=== PATIENT | male | born 1995 | race African-American/Black ===

== ENCOUNTER 2023-08-16 18:16 | Emergency (ER) | payer OTHER ==
[2023-08-16 19:34] LABS: Absolute Lymphocytes (CBC) 0.5 K/uL (0.7-4.9); Absolute Monocytes 0.5 K/uL (0.1-1.3); Absolute Neutrophil 9.4 K/uL (1.8-8.0); Basophils % 0.5 % (0-1.3); Eosinophils % 0.2 % (0-4.4); Hematocrit 44.5 % (39.6-49.0); Hemoglobin 14.9 g/dL (13.6-17.9); Lymphocytes % 4.6 % (15.3-44.8); MCH 27.7 pg (27.0-35.0); MCHC 33.4 g/dL (32.0-36.0); MCV 82.9 fL (80-100); MPV 7.6 fL (7.6-11.3); Monocytes % 4.7 % (3.3-12.3); Nucleated Red Blood Cells % 0.2 % (0-0); Platelets 250 thou/uL (152-406); RBC Red Blood Cell Count 5.36 M/uL (4.33-5.43); Red Cell Distribution Width 13.8 % (12.1-15.2)
[2023-08-16] MEDS ORDERED: ONDANSETRON 4 MG/2 ML VIAL ONE ×2 (19:36→20:31)
[2023-08-16] MEDS ORDERED: MORPHINE 4 MG/ML SYR ONE ×2 (19:37→20:56)
[2023-08-16] MEDS ORDERED: NA CHLORIDE 0.9% 1,000 ML ONE (19:37)
[2023-08-16] MEDS ORDERED: FAMOTIDINE 20 MG/2 ML VIAL IV ONE (19:37)
[2023-08-16 19:56] LABS: Albumin 4.4 g/dL (3.4-5.0); Anion Gap 13.9 mEq/L (5.0-15.0); Globulin 4.3 g/dL (2.3-3.5); Potassium 3.9 mEq/L (3.5-5.1); Protein, Total 8.7 g/dL (6.4-8.2)
--- NOTE | 2023-08-16 20:14 | RAD REPORT ---
EXAM DESCRIPTION: US - Abdomen Exam Limited - 08/16/2023 7:53 pm CLINICAL HISTORY: ABD PAIN COMPARISON: No comparisons FINDINGS: The gallbladder demonstrates no gallstones. No pericholecystic fluid or gallbladder wall t hickening. The common bile duct is normal measuring 2 mm. The liver demonstrates no findings of intrahepatic biliary dilatation. IMPRESSION: Unremarkable examination.
[2023-08-16 21:05] LABS: Blood Morphology Comment NOT SEEN (NOT SEEN); Platelet Estimate ADEQ; White Blood Cell Scan OK (OK)
--- NOTE | 2023-08-16 21:20 | RAD REPORT ---
EXAM DESCRIPTION: CTAbdomen Pelvis Wo Contrast - 08/16/2023 9:07 pm CLINICAL HISTORY: ABD PAIN COMPARISON: No comparisons TECHNIQUE: CT of the abdomen and pelvis was performed without contrast. All CT scans are performed using dose optimization technique as appropriate and may include automated exposure control or mA/KV adjustment according to patient size. FINDINGS: Lower chest: No acute abnormality. Mild circumferential thickened distal esophagus could r eflect mild esophagitis . Liver: No acute abnormality or suspicious lesions. Biliary: No biliary ductal dilatation. Stomach: No significant focal abnormality. Duodenum: No significant focal abnormality. Pancreas: No significant abnormality. Spleen: No significant abnormality. Adrenal: No suspicious lesions. Kidney/ureter: No hydronephrosis. No renal calculi. Retroperitoneum: No retroperitoneal adenopathy. Vascular: No aneurysm. Bowel: Normal appendix. Peritoneum: Small fat containing supraumbilical hernia but with some stranding at the neck of the her fern and in the subjacent peritoneum. Tiny fat containing umbilical hernia. Bladder: Grossly unremarkable. Reproductive: No adnexal masses. Bones: No acute fracture. Sternotomy. Other: n/a IMPRESSION: No definite acute intra-abdominal or pelvic finding. Small fat containing supraumbilical hernia with some stranding within the neck and in the subjacent intraperitoneal fat that could refle ct incarceration or strangulation. Suggest clinical correlation. Normal appendix.
--- NOTE | 2023-08-16 22:21 | ER ---
Nurse's Notes [facility] Name: Naseem Sparrow Age: 28 yrs Sex: Male : 1995 Arrival Date: 08/16/2023 Time: 18:16 Bed 12 Private MD: Diagnosis: Upper abdominal pain, unspecified Presentation: 08/15 18:34 Chief complaint: Diffuse abdominal pain and N/V x 2 days. Coronavirus screen: At this hb time, the client does not indicate any symptoms associated with coronavirus-19. Ebola Screen: No symptoms or risks identified at this time. Initial Sepsis Screen: Does the patient meet any 2 criteria? No. Patient's initial sepsis screen is negative. Does the patient have a suspected source of infection? No. Patient's initial sepsis screen is negative. Risk Assessment: Do you want to hurt yourself or someone else? Patient reports no desire to harm self or others. Onset of symptoms was August 15, 2023. 18:34 Method Of Arrival: Ambulatory hb 18:34 Acuity: VITOR 3 hb Historical: - Allergies: 18:35 IV Contrast; hb 18:35 Lisinopril; hb - PSHx: 18:35 Hypertension; hb - Immunization history:: Adult Immunizations not up to date. - Infectious Disease History:: Denies. - Social history:: Smoking status: Patient denies any tobacco usage or history of. Screenin:59 [facility] ED Fall Risk Assessment (Adult) History of falling in the last 3 months, as6 including since admission No falls in past 3 months (0 pts) Confusion or Disorientation No (0 pts) Intoxicated or Sedated No (0 pts) Impaired Gait No (0 pts) Mobility Assist Device Used No (0 pt) Altered Elimination No (0 pt) Score/Fall Risk Level 0 - 2 = Low Risk Oriented to surroundings, Maintained a safe environment, Educated pt \T\ family on fall prevention, incl call for assistance when getting out of bed, Assessed \T\ reinforced patient's understanding of fall precautions. Abuse screen: Denies threats or abuse. Denies injuries from another. Nutritional screening: No deficits noted. Tuberculosis screening: No symptoms or risk factors identified. Assessment: 19:20 General: Appears uncomfortable, Behavior is cooperative, restless. Pain: Complains of as6 pain in abdomen Noted to be grimacing, guarding, moaning, restless. Neuro: Level of Consciousness is awake, alert, obeys commands, Oriented to person, place, time, situation. Cardiovascular: Capillary refill < 3 seconds Patient's skin is warm and dry. Respiratory: Respiratory effort is even, unlabored, Respiratory pattern is regular, symmetrical. GI: Pt is actively vomiting Reports lower abdominal pain, nausea, vomiting. : No deficits noted. No signs and/or symptoms were reported regarding the genitourinary system. EENT: No deficits noted. No signs and/or symptoms were reported regarding the EENT system. Derm: Skin is intact, is healthy with good turgor. Musculoskeletal: Circulation, motion, and sensation intact. 21:58 Reassessment: Patient appears in no apparent distress at this time. Patient and/or as6 family updated on plan of care and expected duration. Pain level reassessed. Patient is alert, oriented x 3, equal unlabored respirations, skin warm/dry/pink. Patient states feeling better. Patient states symptoms have improved. General: Appears in no apparent distress. comfortable. Vital Signs: 18:34 BP 176 / 105; Pulse 62; Resp 16; Temp 97.9(O); Pulse Ox 100% on R/A; Weight 83.91 kg; hb Height 5 ft. 6 in. ; Pain 4/10; 20:45 BP 119 / 69; Pulse 85; Resp 16; Pulse Ox 97% ; as6 22:02 BP 124 / 71; Pulse 77; Resp 16; Pulse Ox 100% ; as6 18:34 Body Mass Index 29.86 (83.91 kg, 167.64 cm) hb 18:34 Pain Scale: Adult hb ED Course: 18:20 Patient arrived in ED. mg5 18:35 Triage completed. hb 18:36 Arm band placed on. hb 18:52 Iris Robles FNP-C is [facility]. kb 18:52 Joseph Paris MD is Attending Physician. kb 19:11 Jeremías Brown, ERICA is Primary Nurse. as6 19:28 Lipase Sent. as6 19:28 CMP Sent. as6 19:28 CBC with Diff Sent. as6 19:34 Inserted saline lock: 20 gauge in left forearm, using aseptic technique. Blood as6 collected. 19:55 US Abdomen Limited In Process Unspecified. EDMS 21:09 CT Abd/Pelvis - Without Contrast In Process Unspecified. EDMS 22:01 Placed in gown. Bed in low position. Call light in reach. Side rails up X2. Client as6 placed on continuous cardiac and pulse oximetry monitoring. NIBP monitoring applied. Warm blanket given. 22:29 No provider procedures requiring assistance completed. IV discontinued, intact, as6 bleeding controlled, No redness/swelling at site. Pressure dressing applied. 22:30 Provided Education on: follow up with GI. as6 Administered Medications: 19:43 Drug: NS 0.9% IV 1000 ml IV at 1000 ml once Route: IV; Rate: 1000 ml; Site: left as6 forearm; 22:23 Follow up: Response: No adverse reaction; IV Status: Completed infusion; IV Intake: as6 1000ml 19:43 Drug: Ondansetron IVP 4 mg IVP once; over 2 minutes Route: IVP; Site: left forearm; as6 22:23 Follow up: Response: No adverse reaction as6 19:43 Drug: Famotidine IVP 20 mg IVP once; dilute with 10 mL 0.9% NaCl; give over 2 minutes as6 Route: IVP; Site: left forearm; 22:23 Follow up: Response: No adverse reaction as6 19:43 Drug: morphine IVP or IV 4 mg IVP once over 4 mins Route: IVP; Infused Over: 4 mins; as6 Site: left forearm; 22:23 Follow up: Response: No adverse reaction as6 20:33 Drug: Ondansetron IVP 4 mg IVP once; over 2 minutes Route: IVP; Site: left forearm; as6 22:23 Follow up: Response: No adverse reaction as6 21:00 Drug: morphine IVP or IV 4 mg IVP once over 4 mins Route: IVP; Infused Over: 4 mins; cm10 Site: left forearm; 22:22 Follow up: Response: No adverse reaction; Pain is decreased as6 Medication: 22:01 VIS not applicable for this client. as6 Intake: 22:23 IV: 1000ml; Total: 1000ml. as6 Outcome: 22:21 Discharge ordered by MD. freitas 22:29 Discharged to home ambulatory, with significant other, as6 22:29 Condition: stable 22:29 Discharge instructions given to patient, Instructed on discharge instructions, follow up and referral plans. medication usage, Demonstrated understanding of instructions, follow-up care, medications, Prescriptions given X 2, 22:30 Patient left the ED. as6 Signatures: Dispatcher [employer] EDIris Pereira, TANA NICE-Sury Ramirez, RN ERICA Jeremías Brown RN RN as6 Shazia Lei RN RN cm10 Kenzie Holt 5 Corrections: (The following items were deleted from the chart) 18:36 18:35 Allergies: No Known Allergies; [facility]
--- NOTE | 2023-08-16 22:21 | EDPHYS ---
Physician Documentation [facility] Name: Naseem Sparrow Age: 28 yrs Sex: Male : 1995 Arrival Date: 08/16/2023 Time: 18:16 Bed 12 Private MD: ED Physician Joseph Paris HPI: 08/15 23:40 This 28 yrs old Black Male presents to ER via Ambulatory with complaints of Abdominal kb Pain, Vomiting. 23:40 Pt is a 28 year old male who presents for upper abd pain, nausea and vomiting that has kb been intermittent for 3 days. Denies diarrhea. States he has had this in the past and it normally resolves after some time. Has not been seen by GI but was told that he should. . Historical: - Allergies: 18:35 IV Contrast; hb 18:35 Lisinopril; hb - PSHx: 18:35 Hypertension; hb - Immunization history:: Adult Immunizations not up to date. - Infectious Disease History:: Denies. - Social history:: Smoking status: Patient denies any tobacco usage or history of. ROS: 23:39 Constitutional: As per HPI kb Exam: 23:39 Constitutional: This is a well developed, well nourished patient who is awake, alert, kb and in no acute distress. Head/Face: Normocephalic, atraumatic. ENT: Moist Mucous membranes Cardiovascular: Regular rate Respiratory: Respirations even and unlabored. No increased work of breathing. Talking in full sentences Skin: Warm, dry with normal turgor. Normal color. MS/ Extremity: Pulses equal, no cyanosis. Neurovascular intact. Full, normal range of motion. Neuro: Awake and alert, GCS 15, oriented to person, place, time, and situation. Moves all extremities. Normal gait. 23:39 Abdomen/GI: Inspection: abdomen appears normal, Bowel sounds: normal, Palpation: soft, in all quadrants, moderate abdominal tenderness, in the right upper quadrant and left upper quadrant, Vital Signs: 18:34 BP 176 / 105; Pulse 62; Resp 16; Temp 97.9(O); Pulse Ox 100% on R/A; Weight 83.91 kg; hb Height 5 ft. 6 in. ; Pain 4/10; 20:45 BP 119 / 69; Pulse 85; Resp 16; Pulse Ox 97% ; as6 22:02 BP 124 / 71; Pulse 77; Resp 16; Pulse Ox 100% ; as6 18:34 Body Mass Index 29.86 (83.91 kg, 167.64 cm) hb 18:34 Pain Scale: Adult hb MDM: 18:53 Patient medically screened. kb 23:39 Differential diagnosis: gastritis, gastroesophageal reflux disease, non-specific abd kb pain, pancreatitis. Data reviewed: vital signs, nurses notes. Counseling: I had a detailed discussion with the patient and/or guardian regarding the historical points, exam findings, and any diagnostic results supporting the discharge/admit diagnosis, lab results, radiology results, the need for outpatient follow up, a second baker, to return to the emergency department if symptoms worsen or persist or if there are any questions or concerns that arise at home. Response to treatment: the patient's symptoms have resolved after treatment. 08/15 18:53 Order name: CBC with Diff; Complete Time: 21:07 kb 08/15 18:53 Order name: CMP; Complete Time: 20:00 kb 08/15 18:53 Order name: Lipase; Complete Time: 20:00 kb 08/15 21:05 Order name: CBC Smear Scan; Complete Time: 21:07 EDMS 08/15 19:27 Order name: US Abdomen Limited; Complete Time: 20:15 kb 08/15 20:32 Order name: CT Abd/Pelvis - Without Contrast; Complete Time: 21:26 kb 08/15 18:53 Order name: IV Saline Lock; Complete Time: 19:34 kb 08/15 18:53 Order name: Labs collected and sent; Complete Time: 19:28 kb Administered Medications: 19:43 Drug: NS 0.9% IV 1000 ml IV at 1000 ml once Route: IV; Rate: 1000 ml; Site: left as6 forearm; 22:23 Follow up: Response: No adverse reaction; IV Status: Completed infusion; IV Intake: as6 1000ml 19:43 Drug: Ondansetron IVP 4 mg IVP once; over 2 minutes Route: IVP; Site: left forearm; as6 22:23 Follow up: Response: No adverse reaction as6 19:43 Drug: Famotidine IVP 20 mg IVP once; dilute with 10 mL 0.9% NaCl; give over 2 minutes as6 Route: IVP; Site: left forearm; 22:23 Follow up: Response: No adverse reaction as6 19:43 Drug: morphine IVP or IV 4 mg IVP once over 4 mins Route: IVP; Infused Over: 4 mins; as6 Site: left forearm; 22:23 Follow up: Response: No adverse reaction as6 20:33 Drug: Ondansetron IVP 4 mg IVP once; over 2 minutes Route: IVP; Site: left forearm; as6 22:23 Follow up: Response: No adverse reaction as6 21:00 Drug: morphine IVP or IV 4 mg IVP once over 4 mins Route: IVP; Infused Over: 4 mins; cm10 Site: left forearm; 22:22 Follow up: Response: No adverse reaction; Pain is decreased as6 Disposition Summary: 08/16/23 22:21 Discharge Ordered Notes: Location: Home kb Condition: Stable kb Diagnosis - Upper abdominal pain, unspecified kb Followup: kb - With: Emergency Department - When: As needed - Reason: Worsening of condition Followup: kb - With: Private Physician - When: 2 - 3 days - Reason: Recheck today's complaints, Continuance of care, Re-evaluation by your physician Discharge Instructions: - Discharge Summary Sheet kb - Abdominal Pain, Adult, [id number] kb Forms: - Medication Reconciliation Form kb - Antibiotic Education kb - Prescription Opioid Use kb - Patient Portal Instructions kb - Leadership Thank You Letter kb Prescriptions: - Zofran 4 mg Oral tablet - take 1 tablet ORAL route every 6 hours As needed; 12 tablet; Refills: 0, kb Product Selection Permitted - dicyclomine 20 mg Oral tablet - take 1 tablet ORAL route 4 times per day As needed; 12 tablet; Refills: 0, kb Product Selection Permitted Signatures: Dispatcher [employer] Iris Gardner, ARLET-Mack MORALESP-Sury Ramirez RN RN hb Jeremías Brown RN RN as6 Shazia Lei RN RN cm10 Corrections: (The following items were deleted from the chart) 18:36 18:35 Allergies: No Known Allergies; hb
[2023-08-16 23:10] VITALS: BP 124/71; TEMP 97.9; O2SAT 100
== END 2023-08-16 22:30 | disposition home or self-care (01) ==
LOC: ER 18:16
DX: R10.12 Left upper quadrant pain (principal); R10.11 Right upper quadrant pain; Z88.8 Allergy status to other drugs, medicaments and biological substances; Z91.041 Radiographic dye allergy status
CPT/HCPCS: 96361; 85025; 36415; 83690; 80053; 74176; 76705; 96375; 96374; 99284; J2405 ×2; J7030

== ENCOUNTER 2023-11-14 20:57 | Emergency (ER) | payer OTHER ==
[2023-11-14] MEDS ORDERED: ONDANSETRON 4 MG/2 ML VIAL ONE ×2 (21:20→21:53)
[2023-11-14] MEDS ORDERED: CALCIUM GLUCONATE 1 GM IVPB 2 GM/100 ML BAG IV ONE (21:21)
[2023-11-14] MEDS ORDERED: NA CHLORIDE 0.9% 1,000 ML ONE (21:21)
[2023-11-14] MEDS ORDERED: FAMOTIDINE 20 MG/2 ML VIAL IV ONE (21:21)
[2023-11-14] MEDS ORDERED: MORPHINE 4 MG/ML SYR ONE (21:21)
[2023-11-14] MEDS ORDERED: HALOPERIDOL LACT 5 MG/ML INJ ONE (21:21)
[2023-11-14 21:55] LABS: Absolute Lymphocytes (CBC) 1.1 K/uL (0.7-4.9); Absolute Monocytes 0.7 K/uL (0.1-1.3); Absolute Neutrophil 11.9 K/uL (1.8-8.0); Basophils % 0.3 % (0-1.3); Eosinophils % 0.1 % (0-4.4); Hematocrit 46.5 % (39.6-49.0); Hemoglobin 15.6 g/dL (13.6-17.9); MCH 28.1 pg (27.0-35.0); MCHC 33.6 g/dL (32.0-36.0); MCV 83.6 fL (80-100); MPV 7.7 fL (7.6-11.3); Monocytes % 4.9 % (3.3-12.3); Neutrophils % 86.7 % (41.7-73.7); Platelets 232 thou/uL (152-406); RBC Red Blood Cell Count 5.56 M/uL (4.33-5.43); Red Cell Distribution Width 13.9 % (12.1-15.2)
[2023-11-14] MEDS ORDERED: DIAZEPAM 10 MG/2 ML INJ SYRINGE ONE (22:10)
[2023-11-14 22:21] LABS: Barbiturates NEGATIVE (NEGATIVE); Benzodiazepines NEGATIVE (NEGATIVE); Cocaine NEGATIVE (NEGATIVE); METHAMPHETAM NEGATIVE (NEGATIVE); Methadone NEGATIVE (NEGATIVE); Opiates NEGATIVE (NEGATIVE); Phencyclidine NEGATIVE (NEGATIVE); THC Cannibis POSITIVE (NEGATIVE)
[2023-11-14 22:25] LABS: Potassium 3.3 mEq/L (3.5-4.9)
[2023-11-14 22:27] LABS: Albumin 5.1 g/dL (3.4-5.0); Albumin/Globulin Ratio 1.2 (1.1-1.8); Anion Gap 15.3 mEq/L (5.0-15.0); Bilirubin Total 0.9 mg/dL (0.2-1.0); Globulin 4.2 g/dL (2.3-3.5); Protein, Total 9.3 g/dL (6.4-8.2); Troponin High Sensitivity 8.1 pg/mL (<58.9)
--- NOTE | 2023-11-15 00:26 | ER ---
Nurse's Notes [facility] Name: Naseem Sparrow Age: 28 yrs Sex: Male : 1995 Arrival Date: 11/14/2023 Time: 20:57 Bed 3 Private MD: Diagnosis: Vomiting, unspecified;Acute gastroenteritis, nausea vomiting, cannabis use disorder Presentation: 11/13 21:16 Chief complaint: Patient states: abdominal cramping x2 days with nausea, vomiting, tm6 diarrhea, sweating, dizziness. Coronavirus screen: Vaccine status: Patient reports receiving the 2nd dose of the covid vaccine. Ebola Screen: Patient negative for fever greater than or equal to 101.5 degrees Fahrenheit, and additional compatible Ebola Virus Disease symptoms Patient denies exposure to infectious person. Patient denies travel to an Ebola-affected area in the 21 days before illness onset. No symptoms or risks identified at this time. Initial Sepsis Screen: Does the patient meet any 2 criteria? No. Patient's initial sepsis screen is negative. Does the patient have a suspected source of infection? No. Patient's initial sepsis screen is negative. Risk Assessment: Do you want to hurt yourself or someone else? Patient reports no desire to harm self or others. Onset of symptoms was November 12, 2023. 21:16 Method Of Arrival: Ambulatory tm6 21:16 Acuity: VITOR 3 tm6 Triage Assessment: 21:17 General: Appears distressed, Behavior is anxious, restless. Pain: Complains of pain in tm6 abdomen Pain does not radiate. Pain currently is 10 out of 10 on a pain scale. Quality of pain is described as crampy, Pain began 2-3 days ago. EENT: No signs and/or symptoms were reported regarding the EENT system. Neuro: Level of Consciousness is awake, alert, obeys commands, Oriented to person, place, time, situation. Cardiovascular: Patient's skin is warm and dry. Respiratory: Airway is patent Respiratory effort is even, unlabored, Respiratory pattern is regular, symmetrical. GI: Reports lower abdominal pain, upper abdominal pain, cramping, diarrhea, nausea, vomiting. : No signs and/or symptoms were reported regarding the genitourinary system. Derm: No signs and/or symptoms reported regarding the dermatologic system. Musculoskeletal: No signs and/or symptoms reported regarding the musculoskeletal system. Historical: - Allergies: 21:17 IV contrast; tm6 21:17 Lisinopril; tm6 - PMHx: 21:17 Coronary atherosclerosis; tm6 - PSHx: 21:17 Hypertension; aortic valve replacement; Coronary artery bypass graft; tm6 - Immunization history:: Client reports receiving the 2nd dose of the Covid vaccine. - Infectious Disease History:: Denies. - Social history:: Smoking status: Patient denies any tobacco usage or history of. Patient uses alcohol, occasionally. - Family history:: not pertinent. Screenin:17 [facility] ED Fall Risk Assessment (Adult) History of falling in the last 3 months, jj7 including since admission No falls in past 3 months (0 pts) Confusion or Disorientation No (0 pts) Intoxicated or Sedated No (0 pts) Impaired Gait No (0 pts) Mobility Assist Device Used No (0 pt) Altered Elimination No (0 pt) Score/Fall Risk Level 0 - 2 = Low Risk Oriented to surroundings, Maintained a safe environment, Educated pt \T\ family on fall prevention, incl call for assistance when getting out of bed, Assessed \T\ reinforced patient's understanding of fall precautions. Abuse screen: Denies threats or abuse. Nutritional screening: No deficits noted. Tuberculosis screening: No symptoms or risk factors identified. Assessment: 21:17 General: Appears in no apparent distress. uncomfortable, Behavior is inappropriate for jj7 age, FLAILING AROUND IN BED. Pain: Complains of pain in abdomen, right hand, right leg and left leg. GI: Reports cramping, nausea, vomiting. Musculoskeletal: Reports CRAMPING IN LEGS AND ARMS. Vital Signs: 21:16 BP 159 / 135; Pulse 52; Resp 23; Temp 98.5(O); Pulse Ox 100% on R/A; Weight 90.72 kg; tm6 Height 5 ft. 10 in. ; Pain 10/10; 22:01 BP 144 / 75; Pulse 50; Resp 16; Pulse Ox 94% ; jj7 23:07 BP 137 / 123; Pulse 70; Resp 19; Pulse Ox 100% ; jj7 23:33 BP 123 / 75; Pulse 67; Resp 16; Pulse Ox 95% ; jj7 08 00:00 BP 95 / 59; Pulse 49; Resp 16; Pulse Ox 98% ; jj7 00:51 BP 112 / 72; Pulse 50; Resp 16; Temp 97.8; Pulse Ox 96% ; Pain 0/10; jj7 11/13 21:16 Body Mass Index 28.70 (90.72 kg, 177.8 cm) tm6 11/13 21:16 Pain Scale: Adult tm6 00:51 Pain Scale: Adult jj7 Summer Coma Score: 23:09 Eye Response: spontaneous(4). Motor Response: obeys commands(6). Verbal Response: sp4 oriented(5). Total: 15. ED Course: 11/13 21:01 Patient arrived in ED. gm2 21:09 Sumeet Campbell MD is Attending Physician. sp4 21:17 Triage completed. tm6 21:17 Arm band placed on right wrist. tm6 21:17 Patient has correct armband on for positive identification. Bed in low position. Call jj7 light in reach. Adult w/ patient. Provided Education on: USE OF CALL BUSTAMANTE. Warm blanket given. 21:17 Inserted saline lock: 20 gauge in left forearm, using aseptic technique. Blood jj7 collected. Flushed with 10 mL NS. 21:46 BNP Sent. jj7 21:46 CK Sent. jj7 21:46 Troponin High Sensitivity Sent. jj7 21:46 Urine Drug Screen Sent. jj7 21:48 CBC with Diff Sent. jj7 21:48 CMP Sent. jj7 21:48 Lipase Sent. jj7 22:49 Chest Abd Pelvis Wo Con In Process Unspecified. EDMS 11/14 00:06 Jarett Friend MD is Referral Physician. sp4 00:33 No provider procedures requiring assistance completed. IV discontinued, intact, jj7 bleeding controlled, No redness/swelling at site. Pressure dressing applied. Administered Medications: 11/13 21:46 Drug: Famotidine IVP 20 mg IVP once; dilute with 10 mL 0.9% NaCl; give over 2 minutes jj7 Route: IVP; Site: left forearm; 22:00 Follow up: Response: Marked relief of symptoms jj7 21:47 Drug: Haloperidol IVP 2.5 mg/50 mL 2.5 mg IVP once; Place patient on a distresser jj7 Route: IVP; Site: left forearm; 22:00 Follow up: Response: Marked relief of symptoms jj7 :47 Drug: NS 0.9% IV 1000 ml IV at 1 bolus Per protocol; 1000 mL bolus Route: IV; Rate: 1 jj7 bolus; Site: left forearm; 23:15 Follow up: IV Status: Completed infusion 7 21:47 Drug: Ondansetron IVP 8 mg IVP once; over 2 minutes Route: IVP; Site: left forearm; jj7 22:00 Follow up: Response: Marked relief of symptoms; Nausea is decreased 7 21:47 Drug: morphine IVP or IV 4 mg IVP once over 4 mins Route: IVP; Infused Over: 4 mins; jj7 Site: left forearm; 22:00 Follow up: Response: Marked relief of symptoms; Pain is decreased j7 21:48 Drug: Calcium Gluconate IVPB 2 grams IVPB once over 60 mins; (mix in NS 100 mL) Route: jj7 IVPB; Infused Over: 60 mins; Site: left forearm; 23:00 Follow up: IV Status: Completed infusion 23:20 Drug: Diazepam IVP 10 mg IVP once Route: IVP; Site: left forearm; jj7 23:33 Follow up: BP 123 / 75; Pulse 67 bpm; Resp 16 bpm; Pulse Ox 95% ; Response: Marked 7 relief of symptoms Medication: 21:17 VIS not applicable for this client. jj7 Outcome: 11/14 00:26 Discharge ordered by MD. aguero 00:51 Discharged to home ambulatory, with significant other, jj7 00:51 Condition: improved 00:51 Discharge instructions given to patient, Instructed on discharge instructions, follow up and referral plans. medication usage, Demonstrated understanding of instructions, follow-up care, medications, Prescriptions given X 2, 00:54 Patient left the ED. jj7 Signatures: Dispatcher [employer] EDMS Nenita Byrd RN RN jj7 Sumeet Campbell MD MD sp4 Dacia Ascencio 2 Bernice Mehta RN RN tm6
--- NOTE | 2023-11-15 00:26 | EDPHYS ---
Physician Documentation [facility] Name: Naseem Sparrow Age: 28 yrs Sex: Male : 1995 Arrival Date: 11/14/2023 Time: 20:57 Bed 3 Private MD: ED Physician Sumeet Campbell HPI: 11/13 21:09 This 28 yrs old Black Male presents to ER via Unassigned with complaints of sp4 Nausea/Vomiting, Arm Pain, Numbness Of Hand. 11/14 23:09 28-year-old male presents with complaint of nausea vomiting arm pain and bilateral hand sp4 numbness.. Historical: - Allergies: 11/13 21:17 IV contrast; tm6 21:17 Lisinopril; tm6 - PMHx: 21:17 Coronary atherosclerosis; tm6 - PSHx: 21:17 Hypertension; aortic valve replacement; Coronary artery bypass graft; tm6 - Immunization history:: Client reports receiving the 2nd dose of the Covid vaccine. - Infectious Disease History:: Denies. - Social history:: Smoking status: Patient denies any tobacco usage or history of. Patient uses alcohol, occasionally. - Family history:: not pertinent. ROS: 11/14 23:09 Constitutional: Negative for fever, chills, and weight loss, positive nausea vomiting, sp4 positive arm pain, positive numbness of hands. All other systems are negative, Exam: 23:09 Constitutional: This is a well developed, well nourished patient who is awake, alert, sp4 Acutely nauseated and anxious Head/Face: Normocephalic, atraumatic. Eyes: Pupils equal round and reactive to light, extra-ocular motions intact. Lids and lashes normal. Conjunctiva and sclera are not injected. Cornea within normal limits. Periorbital areas with no swelling, redness, or edema. ENT: Nares patent. No nasal discharge, no septal abnormalities noted. Tympanic membranes are normal and external auditory canals are clear. Oropharynx with no redness, swelling, or masses, exudates, or evidence of obstruction, uvula midline. Mucous membranes moist. Neck: Trachea midline, no thyromegaly or masses palpated, and no cervical lymphadenopathy. Supple, full range of motion without nuchal rigidity, or vertebral point tenderness. Chest/axilla: Normal chest wall appearance and motion. Nontender with no deformity. No lesions are appreciated. Cardiovascular: Regular rate and rhythm with a normal S1 and S2. No gallops, murmurs, or rubs. Normal PMI, no JVD. No pulse deficits. Respiratory: Lungs have equal breath sounds bilaterally, clear to auscultation and percussion. No rales, rhonchi or wheezes noted. No increased work of breathing, no retractions or nasal flaring. Abdomen/GI: Soft, with normal bowel sounds. No distension or tympany. No guarding or rebound. No evidence of tenderness throughout. Back: No spinal tenderness. No costovertebral tenderness. Skin: Warm, dry with normal turgor. Normal color with no rashes, no lesions, and no evidence of cellulitis. MS/ Extremity: Pulses equal, no cyanosis. Neurovascular intact. Full, normal range of motion. Neuro: Awake and alert, GCS 15, oriented to person, place, time, and situation. Cranial nerves II-XII grossly intact. Motor strength 5/5 in all extremities. Sensory grossly intact. Psych: Awake, alert, with orientation to person, place and time. Acute anxiety and mild agitation Vital Signs: 11/13 21:16 BP 159 / 135; Pulse 52; Resp 23; Temp 98.5(O); Pulse Ox 100% on R/A; Weight 90.72 kg; tm6 Height 5 ft. 10 in. ; Pain 10/10; 22:01 BP 144 / 75; Pulse 50; Resp 16; Pulse Ox 94% ; jj7 23:07 BP 137 / 123; Pulse 70; Resp 19; Pulse Ox 100% ; j7 23:33 BP 123 / 75; Pulse 67; Resp 16; Pulse Ox 95% ; j7 11/14 00:00 BP 95 / 59; Pulse 49; Resp 16; Pulse Ox 98% ; j7 00:51 BP 112 / 72; Pulse 50; Resp 16; Temp 97.8; Pulse Ox 96% ; Pain 0/10; j7 11/13 21:16 Body Mass Index 28.70 (90.72 kg, 177.8 cm) tm6 11/13 21:16 Pain Scale: Adult 6 00:51 Pain Scale: Adult [facility] [place] Coma Score: 23:09 Eye Response: spontaneous(4). Motor Response: obeys commands(6). Verbal Response: sp4 oriented(5). Total: 15. MDM: 11/13 21:18 Patient medically screened. sp4 23:55 ED course: PROCEDURE: CT Chest, Abdomen and Pelvis Without Intravenous Contrast sp4 CLINICAL INDICATION: The patient is 28 years old and is Male; CHEST PAIN TECHNIQUE: Axial computed tomography images of the chest, abdomen and pelvis without intravenous contrast. Sagittal and coronal reformatted images were created and reviewed. This CT exam was performed using one or more of the following dose reduction techniques: automated exposure control, adjustment of the mA and/or kV according to patient size, and/or use of iterative reconstruction technique. DLP: 879 mGy*cm COMPARISON: CT abdomen and pelvis dated 08/16/2023. FINDINGS: CHEST: LUNGS: Unremarkable. No mass. No consolidation. PLEURAL SPACE: Unremarkable. No significant effusion. No pneumothorax. HEART: See below. MEDIASTINUM: Small hiatal hernia. ABDOMEN: LIVER: Unremarkable. GALLBLADDER AND BILE DUCTS: Unremarkable. No calcified stones. No ductal dilation. PANCREAS: Unremarkable. No ductal dilation. SPLEEN: Unremarkable. No splenomegaly. ADRENALS: Unremarkable. No mass. KIDNEYS AND URETERS: Unremarkable. No obstructing stones. No hydronephrosis. STOMACH AND BOWEL: Unremarkable. No obstruction. No mucosal thickening. PELVIS: APPENDIX: The appendix is seen and is within normal limits. BLADDER: Bladder is decompressed. No stones. REPRODUCTIVE: Unremarkable as visualized. CHEST, ABDOMEN and PELVIS: INTRAPERITONEAL SPACE: Unremarkable. No significant fluid collection. No free air. BONES/JOINTS: Prior median sternotomy and aortic valve replacement. Severe dilation of the aortic root measuring 5.1 cm. No acute fracture. No dislocation. SOFT TISSUES: Fat-containing upper ventral hernia with mild associated stranding.. VASCULATURE: Unremarkable. No aortic aneurysm. LYMPH NODES: Unremarkable. No enlarged lymph nodes. IMPRESSION: 1. No acute abdominal or pelvic abnormality. 2. Prior median sternotomy and aortic valve replacement. Severe dilation of the aortic root measuring 5.1 cm. 3. Fat-containing upper ventral hernia with mild associated stranding.. 4. Small hiatal hernia. Electronically signed by: Sean Bush DO 11/14/2023 11:27 PM CD. 11/14 23:11 Differential diagnosis: Nonspecific abd pain, gastritis, viral gastroenteritis, sp4 gastroenteritis. Data reviewed: vital signs, nurses notes, radiologic studies, CT scan. ED course: Patient has improved after medications. Patient is stable for discharge home. Acute GI upset likely secondary to cannabis abuse, patient was advised to stay away from cannabis. 11/13 21:16 Order name: CBC with Diff; Complete Time: 22:15 sp4 11/13 21:16 Order name: CMP; Complete Time: 23:47 sp4 11/13 21:16 Order name: Lipase; Complete Time: 23:47 sp4 11/13 21:16 Order name: Urine Drug Screen; Complete Time: 22:33 sp4 11/13 21:17 Order name: Troponin High Sensitivity; Complete Time: 23:47 sp4 11/13 21:17 Order name: CK; Complete Time: 23:47 sp4 11/13 21:17 Order name: BNP; Complete Time: 23:47 sp4 11/13 22:49 Order name: Chest Abd Pelvis Wo Con EDMS 11/13 21:16 Order name: IV Saline Lock; Complete Time: 21:47 sp4 11/13 21:16 Order name: Labs collected and sent; Complete Time: 21:47 sp4 Administered Medications: 11/13 21:46 Drug: Famotidine IVP 20 mg IVP once; dilute with 10 mL 0.9% NaCl; give over 2 minutes jj7 Route: IVP; Site: left forearm; 22:00 Follow up: Response: Marked relief of symptoms j7 21:47 Drug: Haloperidol IVP 2.5 mg/50 mL 2.5 mg IVP once; Place patient on a energy management specialist jj7 Route: IVP; Site: left forearm; 22:00 Follow up: Response: Marked relief of symptoms j7 21:47 Drug: NS 0.9% IV 1000 ml IV at 1 bolus Per protocol; 1000 mL bolus Route: IV; Rate: 1 jj7 bolus; Site: left forearm; 23:15 Follow up: IV Status: Completed infusion j7 21:47 Drug: Ondansetron IVP 8 mg IVP once; over 2 minutes Route: IVP; Site: left forearm; jj7 22:00 Follow up: Response: Marked relief of symptoms; Nausea is decreased j7 21:47 Drug: morphine IVP or IV 4 mg IVP once over 4 mins Route: IVP; Infused Over: 4 mins; jj7 Site: left forearm; 22:00 Follow up: Response: Marked relief of symptoms; Pain is decreased 21:48 Drug: Calcium Gluconate IVPB 2 grams IVPB once over 60 mins; (mix in NS 100 mL) Route: jj7 IVPB; Infused Over: 60 mins; Site: left forearm; 23:00 Follow up: IV Status: Completed infusion 23:20 Drug: Diazepam IVP 10 mg IVP once Route: IVP; Site: left forearm; jj 23:33 Follow up: BP 123 / 75; Pulse 67 bpm; Resp 16 bpm; Pulse Ox 95% ; Response: Marked j7 relief of symptoms Disposition Summary: 11/15/23 00:26 Discharge Ordered Notes: Location: Home sp4 Problem: new sp4 Symptoms: have improved sp4 Condition: Stable sp4 Diagnosis - Vomiting, unspecified sp4 - Acute gastroenteritis, nausea vomiting, cannabis use disorder sp4 Followup: sp4 - With: Jarett Friend MD - When: 10 - 14 days - Reason: Recheck today's complaints Discharge Instructions: - Discharge Summary Sheet sp4 - Nausea and Vomiting, Adult, [id number] sp4 Forms: - Patient Portal Instructions sp4 Prescriptions: - methocarbamol 750 mg Oral tablet - take 2 tablets ORAL route every 8 hours for 3 days PRN cramps; 30 tablet; sp4 Refills: 0, Product Selection Permitted - ondansetron 8 mg Oral Tablet,disintegrating - take 1 tablet ORAL route every 8 hours PRN nausea; 30 tablet; Refills: 0, sp4 Product Selection Permitted Signatures: Dispatcher [employer] Nenita Sinclair RN RN jj7 Sumeet Campbell MD MD sp4 Bernice Mehta RN RN tm6 Corrections: (The following items were deleted from the chart) 21:17 21:17 Troponin High Sensitivity+C.LAB.BRZ ordered. EDMS EDMS 21:17 21:17 CREATINE PHOSPHOKINASE+C.LAB.BRZ ordered. EDMS EDMS 21:18 21:18 Chest Abdomen Pelvis W Con+CT.RAD.BRZ ordered. EDMS EDMS
[2023-11-15 01:10] VITALS: BP 112/72; TEMP 97.8; O2SAT 96
--- NOTE | 2023-11-17 10:59 | RAD REPORT ---
EXAM DESCRIPTION: CT Chest, Abdomen and Pelvis Without Intravenous Contrast CLINICAL HISTORY: The patient is 28 years old and is Male; CHEST PAIN TECHNIQUE: Axial computed tomography images of the chest, abdomen and pelvis without intravenous con trast. Sagittal and coronal reformatted images were created and reviewed. This CT exam was perfor med using one or more of the following dose reduction techniques: automated exposure control, adjus tment of the mA and/or kV according to patient size, and/or use of iterative reconstruction technique . DLP: 879 mGy*cm COMPARISON: CT abdomen and pelvis dated 08/16/2023. FINDINGS: CHEST: LUNGS: Unremarkable. No mass. No consolidation. PLEURAL SPACE: Unremarkable. No significant effusion. No pneumothorax. HEART: See below. MEDIASTINUM: Small hiatal hernia. ABDOMEN: LIVER: Unremarkable. GALLBLADDER AND BILE DUCTS: Unremarkable. No calcified stones. No ductal dilation. PANCREAS: Unremarkable. No ductal dilation. SPLEEN: Unremarkable. No splenomegaly. ADRENALS: Unremarkable. No mass. KIDNEYS AND URETERS: Unremarkable. No obstructing stones. No hydronephrosis. STOMACH AND BOWEL: Unremarkable. No obstruction. No mucosal thickening. PELVIS: APPENDIX: The appendix is seen and is within normal limits. BLADDER: Bladder is decompressed. No stones. REPRODUCTIVE: Unremarkable as visualized. CHEST, ABDOMEN and PELVIS: INTRAPERITONEAL SPACE: Unremarkable. No significant fluid collection. No free air. BONES/JOINTS: Prior median sternotomy and aortic valve replacement. Severe dilation of the aortic r oot measuring 5.1 cm. No acute fracture. No dislocation. SOFT TISSUES: Fat-containing upper ventral hernia with mild associated stranding.. VASCULATURE: Unremarkable. No aortic aneurysm. LYMPH NODES: Unremarkable. No enlarged lymph nodes. IMPRESSION: 1. No acute abdominal or pelvic abnormality. 2. Prior median sternotomy and aortic valve replacement. Severe dilation of the aortic root measuri ng 5.1 cm. 3. Fat-containing upper ventral hernia with mild associated stranding.. 4. Small hiatal hernia. Electronically signed by: Sean Bush DO 11/14/2023 11:27 PM CDT RP 9 Due to temporary technical issues with the PACS/Fluency reporting system, reports are being signed by the in house radiologist without review as a courtesy to ensure prompt reporting. The interpreting r adiologist is fully responsible for the content of the report.
== END 2023-11-15 00:54 | disposition home or self-care (01) ==
LOC: ER 20:57
DX: K52.9 Noninfective gastroenteritis and colitis, unspecified (principal); F12.10 Cannabis abuse, uncomplicated; I10 Essential (primary) hypertension; Z95.1 Presence of aortocoronary bypass graft
CPT/HCPCS: 96365; 85025; 36415; 82550; 82565; 84484; 83690; 80053; 83880; 80307; 71250; 74176; 96375; 99284; J0612; J1630; J3360; J2405 ×2; J7030

== ENCOUNTER 2023-11-16 08:13 | Emergency (ER) | payer OTHER ==
[2023-11-16 09:46] LABS: Absolute Lymphocytes (CBC) 0.8 K/uL (0.7-4.9); Absolute Monocytes 0.6 K/uL (0.1-1.3); Absolute Neutrophil 6.2 K/uL (1.8-8.0); Basophils % 0.3 % (0-1.3); Eosinophils % 0.2 % (0-4.4); Hematocrit 47.6 % (39.6-49.0); Hemoglobin 15.8 g/dL (13.6-17.9); Lymphocytes % 11.1 % (15.3-44.8); MCH 28.4 pg (27.0-35.0); MCHC 33.2 g/dL (32.0-36.0); MCV 85.4 fL (80-100); MPV 7.5 fL (7.6-11.3); Monocytes % 7.6 % (3.3-12.3); Neutrophils % 80.8 % (41.7-73.7); Nucleated Red Blood Cells % 0.4 % (0-0); Platelets 226 thou/uL (152-406); RBC Red Blood Cell Count 5.57 M/uL (4.33-5.43); Red Cell Distribution Width 13.7 % (12.1-15.2)
--- NOTE | 2023-11-16 10:02 | RAD REPORT ---
EXAM DESCRIPTION: Amanda Single View11/16/2023 9:41 am CLINICAL HISTORY: vomiting COMPARISON: No comparisons TECHNIQUE: Portable AP view of the chest. FINDINGS: The lungs are clear. No pneumothorax or effusion. The cardiomediastinal contours are unre markable apart from sequelae of median sternotomy. IMPRESSION: No acute cardiopulmonary process.
[2023-11-16] MEDS ORDERED: NA CHLORIDE 0.9% 1,000 ML ONE (10:04)
[2023-11-16] MEDS ORDERED: MORPHINE 4 MG/ML SYR ONE (10:04)
[2023-11-16] MEDS ORDERED: ONDANSETRON 4 MG/2 ML VIAL ONE ×2 (10:04→13:02)
[2023-11-16] MEDS ORDERED: FAMOTIDINE 20 MG/2 ML VIAL IV ONE (10:04)
[2023-11-16 10:09] LABS: Albumin 4.8 g/dL (3.4-5.0); Albumin/Globulin Ratio 1.3 (1.1-1.8); Anion Gap 12.6 mEq/L (5.0-15.0); Bilirubin Total 0.9 mg/dL (0.2-1.0); Globulin 3.7 g/dL (2.3-3.5); Potassium 3.6 mEq/L (3.5-5.1); Protein, Total 8.5 g/dL (6.4-8.2)
[2023-11-16 10:09] LABS: Specific Gravity > 1.030 (1.005-1.030); Sqamous Epithelial <5 /HPF (None Seen); Urine Bacteria None Seen /HPF (<20); Urine Bilirubin NEGATIVE (Negative); Urine Blood Trace (Negative); Urine Clarity Turbid (Clear); Urine Color Yellow (Yellow); Urine Culture Reflex Order NOT NEEDED; Urine Glucose NEGATIVE (Negative); Urine Ketones 3+ (Negative); Urine Microscopic Reflex YN ORDER UMIC; Urine Mucus 3+ /HPF (None Seen); Urine Nitrite NEGATIVE (Negative); Urine Protein 1+ (Negative); Urine RBC <5 /HPF (None Seen); Urine Urobilinogen 1+ (Normal); Urine WBC <5 /HPF (<5)
[2023-11-16 10:33] LABS: Barbiturates NEGATIVE (NEGATIVE); Benzodiazepines POSITIVE (NEGATIVE); Cocaine NEGATIVE (NEGATIVE); METHAMPHETAM NEGATIVE (NEGATIVE); Methadone NEGATIVE (NEGATIVE); Opiates NEGATIVE (NEGATIVE); Phencyclidine NEGATIVE (NEGATIVE); THC Cannibis POSITIVE (NEGATIVE)
[2023-11-16 10:35] LABS: Blood Morphology Comment NOT SEEN (NOT SEEN); Platelet Estimate ADEQ; White Blood Cell Scan OK (OK)
--- NOTE | 2023-11-16 11:44 | RAD REPORT ---
EXAM DESCRIPTION: US - Abdomen Exam Limited - 11/16/2023 10:22 am CLINICAL HISTORY: ABD PAIN COMPARISON: No comparisonsChest Single View dated 09/05/2015; MRI LUMBAR SPINE W O CON dated 09/27/2014 No comparisonsChest Single View dated 09/05/2015; MRI LUMBAR SPINE W O CON dated 09/27/2014bdomen Pel vis Wo Contrast dated 08/16/2023 TECHNIQUE: Sonographic grayscale and color flow images of the right upper abdominal quadrant were o btained. FINDINGS: The gallbladder demonstrates no gallstones. No pericholecystic fluid or gallbladder wall t hickening. The common bile duct is normal measuring 3 mm. The liver demonstrates no findings of intrahepatic biliary dilatation. IMPRESSION: Unremarkable right upper quadrant ultrasound.
[2023-11-16] MEDS ORDERED: PROMETHAZINE INJ 25 MG/ML AMP ONE (11:53)
--- NOTE | 2023-11-16 12:14 | RAD REPORT ---
EXAM DESCRIPTION: CT - Abdomen Pelvis Wo Contrast - 11/16/2023 12:04 pm CLINICAL HISTORY: ABD PAIN COMPARISON: Abdomen Pelvis Wo Contrast dated 08/16/2023 TECHNIQUE: Thin cut axial CT imaging of the abdomen and pelvis was performed without IV contrast. Mu ltiplanar reformats were generated and reviewed. All CT scans are performed using dose optimization technique as appropriate and may include automated exposure control or mA/KV adjustment according to patient size. FINDINGS: No suspicious findings in the lung bases. The liver, spleen, adrenal glands, and pancreas show no suspicious findings. Gallbladder was layering mildly hyperdense sludge, without other suspicious features. No evidence of intra or extrahepatic bi liary ductal dilation. Symmetric renal contour, without suspicious parenchymal findings within limits of noncontrast techniq ue. No evidence of radiopaque calculi or hydroureteronephrosis. No dilated bowel loops or bowel wall thickening. Appendix is unremarkable. No free air, free fluid or inflammatory stranding. Small midline supraumbilical ventral hernia containing fat measuring 2.7 cm directed to the right, see axial image 32. No suspicious mass or bulky lymphadenopathy. The urinary b ladder is decompressed limiting evaluation. No suspicious bony findings. IMPRESSION: No acute intra-abdominal process. Incidental findings as above.
[2023-11-16] MEDS ORDERED: LORazepam 2 MG/ML VIAL ONE (13:02)
--- NOTE | 2023-11-16 13:50 | EDPHYS ---
Physician Documentation [facility] Name: Naseem Sparrow Age: 28 yrs Sex: Male : 1995 Arrival Date: 11/16/2023 Time: : Bed DX1 Private MD: ED Physician Jessica Dominguez HPI: 11/15 09:20 This 28 yrs old Black Male presents to ER via Ambulatory with complaints of Abdominal cp Pain. 09:20 The patient presents with abdominal pain that is diffuse. cp 09:20 Onset: The symptoms/episode began/occurred 2 day(s) ago. The symptoms do not radiate. cp Associated signs and symptoms: Pertinent positives: nausea and vomiting, Pertinent negatives: constipation, diarrhea, fever, vomiting blood, diarrhea. The symptoms are described as constant. Modifying factors: the symptoms are aggravated by movement. Severity of pain: in the emergency department the pain is unchanged despite home interventions. Historical: - Allergies: 08:54 IV contrast; hb 08:54 Lisinopril; hb - PMHx: 08:54 coronary atherosclerosis; hb - PSHx: 08:54 Aortic valve replacement; Coronary artery bypass graft; Hypertension; hb - Immunization history:: Adult Immunizations up to date. - Infectious Disease History:: Denies. - Social history:: Smoking status: Patient denies any tobacco usage or history of. Patient uses street drugs, marijuana. ROS: 09:25 Constitutional: Positive for poor PO intake, Negative for body aches, chills, fever, cp 09:25 Eyes: Negative for injury, pain, redness, and discharge, cp 09:25 ENT: Negative for drainage from ear(s), ear pain, sore throat, difficulty swallowing, difficulty handling secretions, :25 Respiratory: Negative for cough, shortness of breath, wheezing, 09:25 Abdomen/GI: Positive for nausea and vomiting, anorexia, Negative for diarrhea, constipation, hematemesis, 09:25 Back: Negative for radiated pain, 09:25 : Negative for urinary symptoms, testicular pain 09:25 Neuro: Negative for altered mental status, headache, syncope, 09:25 All other systems are negative, Exam: 09:30 Constitutional: The patient appears in no acute distress, alert, awake, cp non-diaphoretic, non-toxic, well developed, well nourished, in obvious pain, uncomfortable, 09:30 Head/Face: Normocephalic, atraumatic. cp 09:30 Eyes: Periorbital structures: appear normal, Conjunctiva: normal, no exudate, no injection, Sclera: no appreciated abnormality, Lids and lashes: appear normal, bilaterally, 09:30 ENT: External ear(s): are unremarkable, Nose: is normal, Mouth: Lips: moist, Oral mucosa: pink and intact, moist, Posterior pharynx: is normal, airway is patent, no erythema, no exudate, 09:30 Neck: ROM/movement: is normal, is supple, without pain, no range of motions limitations, 09:30 Chest/axilla: Inspection: normal, Palpation: is normal, no crepitus, no tenderness, 09:30 Cardiovascular: Rate: normal, Rhythm: regular, 09:30 Respiratory: the patient does not display signs of respiratory distress, Respirations: normal, no use of accessory muscles, no retractions, labored breathing, is not present, Breath sounds: are clear throughout, no decreased breath sounds, no stridor, no wheezing, 09:30 Abdomen/GI: Inspection: scar(s), Bowel sounds: active, all quadrants, Palpation: soft, in all quadrants, severe abdominal tenderness, in all quadrants, Vital Signs: 08:53 BP 176 / 108; Pulse 89; Resp 16; Temp 98.3(O); Pulse Ox 100% on R/A; Weight 90.72 kg; hb Height 5 ft. 10 in. ; Pain 7/10; 12:15 BP 156 / 86; Pulse 88; Resp 16; Pulse Ox 99% on R/A; hb 14:00 BP 136 / 86; Pulse 72; Resp 16; Pulse Ox 99% ; hb 08:53 Body Mass Index 28.70 (90.72 kg, 177.8 cm) hb 08:53 Pain Scale: Adult hb MDM: 09:11 Patient medically screened. cp 13:50 Data reviewed: vital signs, nurses notes, lab test result(s), EKG, radiologic studies, cp CT scan, and as a result, I will discharge patient. 13:50 Differential diagnosis: bowel obstruction, gastritis, non-specific abd pain, cp pancreatitis, Peptic Ulcer Disease, Perf. Duodenal Ulcer, Perf. Gastric Ulcer, Pyelonephritis, Ureterolithiasis, urinary tract infection. I considered the following discharge prescriptions or medication management in the emergency department Medications were administered in the Emergency Department. See MAR. Independent interpretation of the following test(s) in the Emergency Department EKG: See my EKG interpretation above. Counseling: I had a detailed discussion with the patient and/or guardian regarding the historical points, exam findings, and any diagnostic results supporting the discharge/admit diagnosis, lab results, radiology results, to return to the emergency department if symptoms worsen or persist or if there are any questions or concerns that arise at home. Special discussion: Based on the patient's Hx, exam, and Dx evaluation, there is no indication for emergent surgery or inpatient Tx. It is understood by the patient/guardian that if the Sx's persist or worsen they need to return immediately for re-evaluation. 11/15 09:15 Order name: CBC with Diff; Complete Time: 11:23 cp 11/15 09:56 Interpretation: Normal except: RBC 5.57; MPV 7.5; CHELE% 80.8; LYM% 11.1. cp 11/15 09:15 Order name: CMP; Complete Time: 11:23 cp 11/15 13:48 Interpretation: Normal except: NA 135; GLUC 112; BUN 20; GFR 79; TP 8.5; GLOB 3.7. cp 11/15 09:15 Order name: Lipase; Complete Time: 11:23 cp 11/15 09:15 Order name: Urinalysis w/ reflexes; Complete Time: 11:23 cp 11/15 13:48 Interpretation: Normal except: UCLA Turbid; Urine SG > 1.030; UKET 3+; UBLD Trace; cp UPROT 1+; UUROB 1+; MUCUS 3+. 11/15 09:51 Order name: CBC Smear Scan; Complete Time: 11:23 EDMS 11/15 09:56 Order name: UDS; Complete Time: 11:23 cp 11/15 13:49 Interpretation: Normal except: BZO POSITIVE; THC POSITIVE. 11/15 09:31 Order name: US Abdomen Limited: RUQ; Complete Time: 12:34 cp 11/15 09:31 Order name: XRAY Chest (1 view); Complete Time: 11:23 cp 11/15 11:23 Order name: CT Abd/Pelvis - Without Contrast; Complete Time: 12:34 cp 11/15 12:35 Interpretation: Report reviewed. cp 11/15 09:15 Order name: IV Saline Lock; Complete Time: 09:40 cp 11/15 09:15 Order name: Labs collected and sent; Complete Time: 09:40 cp 11/15 09:31 Order name: EKG - Nurse/Tech; Complete Time: 10:02 cp 11/15 13:48 Order name: PO challenge; Complete Time: 14:34 cp Administered Medications: 10:14 Drug: Ondansetron IVP 4 mg IVP once; over 2 minutes Route: IVP; Site: right antecubital;hb 11:35 Follow up: Response: No adverse reaction hb 10:14 Drug: Famotidine IVP 20 mg IVP once; dilute with 10 mL 0.9% NaCl; give over 2 minutes hb Route: IVP; Site: right antecubital; 11:35 Follow up: Response: No adverse reaction hb 10:14 Drug: morphine IVP or IV 4 mg IVP once over 4 mins Route: IVP; Infused Over: 4 mins; hb Site: right antecubital; 11:35 Follow up: Response: No adverse reaction hb 10:14 Drug: NS 0.9% IV 1000 ml IV at 1 bolus Per protocol Route: IV; Rate: 1 bolus; Site: hb right antecubital; 11:59 Follow up: Response: No adverse reaction; IV Status: Completed infusion; IV Intake: hb 1000ml 11:58 Drug: Promethazine IVP 25 mg IVP once; place in IV fluids Route: IVP; Site: right hb antecubital; 12:25 Follow up: Response: No adverse reaction hb 13:07 Drug: Ativan IVP 1 mg IVP once Route: IVP; Site: right antecubital; hb 13:30 Follow up: Response: No adverse reaction hb 13:07 Drug: Ondansetron IVP 4 mg IVP once; over 2 minutes Route: IVP; Site: right antecubital;hb 13:30 Follow up: Response: No adverse reaction hb Disposition Summary: 11/16/23 13:50 Discharge Ordered Notes: Location: Home cp Problem: new cp Symptoms: have improved cp Condition: Stable cp Diagnosis - Nausea with vomiting, unspecified cp - Abdominal pain, unspecified cp Followup: cp - With: Private Physician - When: 1 - 2 days - Reason: Worsening of condition Discharge Instructions: - Discharge Summary Sheet cp - Abdominal Pain, Adult cp - Nausea and Vomiting, Adult cp Forms: - Medication Reconciliation Form cp - Antibiotic Education cp - Prescription Opioid Use cp - Patient Portal Instructions cp - Leadership Thank You Letter cp Prescriptions: - Pepcid 20 mg Oral Tablet - take 1 tablet ORAL route every 12 hours for 10 days; 20 tablet; Refills: 0, cp Product Selection Permitted - promethazine 25 mg Oral Tablet - take 1 tablet ORAL route every 6 hours As needed; 20 tablet; Refills: 0, cp Product Selection Permitted Signatures: Dispatcher [employer] EDMS Joseph Jorgensen PA PA cp Sury Ordonez RN RN hb Corrections: (The following items were deleted from the chart) 09:32 09:32 Troponin High Sensitivity+C.LAB.BRZ ordered. EDMS EDMS 09:32 09:32 MAGNESIUM+C.LAB.BRZ ordered. EDMS EDMS 09:32 09:32 Abdomen Limited+US.RAD.BRZ ordered. EDMS EDMS 09:32 09:32 Chest Single View+RAD.RAD.BRZ ordered. EDMS EDMS
--- NOTE | 2023-11-16 13:50 | ER ---
Nurse's Notes [facility] Name: Naseem Sparrow Age: 28 yrs Sex: Male : 1995 Arrival Date: 11/16/2023 Time: 08:13 Bed DX1 Private MD: Diagnosis: Nausea with vomiting, unspecified;Abdominal pain, unspecified Presentation: 11/15 08:53 Chief complaint: Lower abdominal cramping and N/V x 2 days. Coronavirus screen: At this hb time, the client does not indicate any symptoms associated with coronavirus-19. Ebola Screen: No symptoms or risks identified at this time. Initial Sepsis Screen: Does the patient meet any 2 criteria? No. Patient's initial sepsis screen is negative. Does the patient have a suspected source of infection? No. Patient's initial sepsis screen is negative. Risk Assessment: Do you want to hurt yourself or someone else? Patient reports no desire to harm self or others. Onset of symptoms was November 15, 2023. 08:53 Method Of Arrival: Ambulatory hb 08:53 Acuity: VITOR 3 hb Triage Assessment: 08:54 General: Appears uncomfortable, Behavior is cooperative, restless. Pain: Pain currently hb is 7 out of 10 on a pain scale. Neuro: Level of Consciousness is awake, alert, obeys commands, Oriented to person, place, time, situation. Cardiovascular: Patient's skin is warm and dry. Respiratory: Respiratory effort is even, unlabored, Respiratory pattern is regular, symmetrical. GI: Reports lower abdominal pain, cramping, nausea, vomiting. Historical: - Allergies: 08:54 IV contrast; hb 08:54 Lisinopril; hb - PMHx: 08:54 coronary atherosclerosis; hb - PSHx: 08:54 Aortic valve replacement; Coronary artery bypass graft; Hypertension; hb - Immunization history:: Adult Immunizations up to date. - Infectious Disease History:: Denies. - Social history:: Smoking status: Patient denies any tobacco usage or history of. Patient uses street drugs, marijuana. Screenin:45 [facility] ED Fall Risk Assessment (Adult) History of falling in the last 3 months, hb including since admission No falls in past 3 months (0 pts) Confusion or Disorientation No (0 pts) Intoxicated or Sedated Yes (3 pts) Impaired Gait No (0 pts) Mobility Assist Device Used No (0 pt) Altered Elimination No (0 pt) Score/Fall Risk Level 3 or more points = High Risk Oriented to surroundings, Maintained a safe environment, Educated pt \T\ family on fall prevention, incl call for assistance when getting out of bed, Assessed \T\ reinforced patient's understanding of fall precautions, Hourly rounding (assess needs \T\ fall precautionary measures) done. Abuse screen: Denies threats or abuse. Denies injuries from another. Nutritional screening: No deficits noted. Tuberculosis screening: No symptoms or risk factors identified. Assessment: 09:45 General: See triage assessment . General: Appears. hb 11:02 Reassessment: Patient appears in no apparent distress at this time. No changes from hb previously documented assessment. Patient and/or family updated on plan of care and expected duration. Pain level reassessed. 12:00 Reassessment: Patient appears in no apparent distress at this time. No changes from hb previously documented assessment. Patient and/or family updated on plan of care and expected duration. Pain level reassessed. 13:09 Reassessment: Patient appears in no apparent distress at this time. No changes from hb previously documented assessment. Patient and/or family updated on plan of care and expected duration. Pain level reassessed. 14:15 Reassessment: Patient appears in no apparent distress at this time. Patient and/or hb family updated on plan of care and expected duration. Pain level reassessed. Patient states symptoms have improved. Vital Signs: 08:53 BP 176 / 108; Pulse 89; Resp 16; Temp 98.3(O); Pulse Ox 100% on R/A; Weight 90.72 kg; hb Height 5 ft. 10 in. ; Pain 7/10; 12:15 BP 156 / 86; Pulse 88; Resp 16; Pulse Ox 99% on R/A; hb 14:00 BP 136 / 86; Pulse 72; Resp 16; Pulse Ox 99% ; hb 08:53 Body Mass Index 28.70 (90.72 kg, 177.8 cm) hb 08:53 Pain Scale: Adult hb ED Course: 08:15 Patient arrived in ED. mr 08:54 Triage completed. hb 08:54 Arm band placed on. hb 09:11 Joseph Jorgensen PA is PHCP. cp 09:11 Jessica Dominguez MD is Attending Physician. cp 09:40 Troponin HS Sent. em1 09:40 CBC with Diff Sent. em1 09:40 CMP Sent. em1 09:40 Lipase Sent. em1 09:40 Initial lab(s) drawn, by me, sent to lab. Inserted saline lock: 22 gauge in right em1 antecubital area, using aseptic technique. Blood collected. Flushed with 10 mL NS. 09:42 Urinalysis w/ reflexes Sent. em1 09:43 XRAY Chest (1 view) In Process Unspecified. EDMS 09:45 Patient has correct armband on for positive identification. Provided Education on: hb tests, result times, medications . 10:04 EKG done, by ED staff, reviewed by Joseph CORBIN. cc6 10:24 US Abdomen Limited: RUQ In Process Unspecified. EDMS 12:06 CT Abd/Pelvis - Without Contrast In Process Unspecified. EDMS 12:28 CT completed. Patient tolerated procedure well. Patient moved back from CT. mw3 14:33 Sury Ordonez, RN is Primary Nurse. hb 14:35 No provider procedures requiring assistance completed. IV discontinued, intact, hb bleeding controlled, No redness/swelling at site. Pressure dressing applied. Administered Medications: 10:14 Drug: Ondansetron IVP 4 mg IVP once; over 2 minutes Route: IVP; Site: right antecubital;hb 11:35 Follow up: Response: No adverse reaction hb 10:14 Drug: Famotidine IVP 20 mg IVP once; dilute with 10 mL 0.9% NaCl; give over 2 minutes hb Route: IVP; Site: right antecubital; 11:35 Follow up: Response: No adverse reaction hb 10:14 Drug: morphine IVP or IV 4 mg IVP once over 4 mins Route: IVP; Infused Over: 4 mins; hb Site: right antecubital; 11:35 Follow up: Response: No adverse reaction hb 10:14 Drug: NS 0.9% IV 1000 ml IV at 1 bolus Per protocol Route: IV; Rate: 1 bolus; Site: hb right antecubital; 11:59 Follow up: Response: No adverse reaction; IV Status: Completed infusion; IV Intake: hb 1000ml 11:58 Drug: Promethazine IVP 25 mg IVP once; place in IV fluids Route: IVP; Site: right hb antecubital; 12:25 Follow up: Response: No adverse reaction hb 13:07 Drug: Ativan IVP 1 mg IVP once Route: IVP; Site: right antecubital; hb 13:30 Follow up: Response: No adverse reaction hb 13:07 Drug: Ondansetron IVP 4 mg IVP once; over 2 minutes Route: IVP; Site: right antecubital;hb 13:30 Follow up: Response: No adverse reaction hb Medication: 14:00 VIS not applicable for this client. hb Intake: 11:59 IV: 1000ml; Total: 1000ml. hb Outcome: 13:50 Discharge ordered by MD. cp 14:35 Discharged to home ambulatory, with significant other, hb 14:35 Condition: stable 14:35 Discharge instructions given to patient, significant other, Instructed on discharge instructions, follow up and referral plans. medication usage, Demonstrated understanding of instructions, follow-up care, medications, Prescriptions given X 2, 14:35 Patient left the ED. hb Signatures: Dispatcher [employer] EDMS Griselda Saleem, Michael [address] em1 Joseph Jorgensen PA PA cp Baxter, Heather, RN RN Tish Hanna mw3 Aliya Sorenson cc6
[2023-11-16 15:06] VITALS: TEMP 98.3
[2023-11-16 15:08] VITALS: BP 136/86; O2SAT 99
--- NOTE | 2023-11-18 12:45 | EKG ---
Test Date: 2023-11-16 Test Time: 10:01:05 Merchandise Executive: MIKE MEASUREMENT RESULTS: Intervals: Rate: 55 OH: 128 QRSD: 106 QT: 460 QTc: 440 [place]: P: 29 OH: 128 QRS: 92 T: 54 INTERPRETIVE STATEMENTS: Sinus tachycardia with 2nd degree AV block (Mobitz II) Incomplete left bundle branch block Abnormal ECG No previous ECG available for comparison Electronically Signed On 11-18-23 12:42:48 CDT by Bk De Leon
== END 2023-11-16 14:35 | disposition home or self-care (01) ==
LOC: ER 08:13
DX: R11.2 Nausea with vomiting, unspecified (principal); R10.9 Unspecified abdominal pain; Z95.1 Presence of aortocoronary bypass graft
CPT/HCPCS: 96361; 85025; 81001; 36415; 83690; 80053; 80307; 74176; 71045; 76705; 96375; 96374; 99285; J2550; J2405 ×2; J7030; 93005

== ENCOUNTER 2024-01-09 07:23 | Emergency (ER) | payer BC, OTHER ==
[2024-01-09] MEDS ORDERED: NA CHLORIDE 0.9% 1,000 ML ONE (07:34)
[2024-01-09] MEDS ORDERED: FAMOTIDINE 20 MG/2 ML VIAL IV ONE (07:34)
[2024-01-09] MEDS ORDERED: ONDANSETRON 4 MG/2 ML VIAL ONE (07:34)
[2024-01-09 07:53] LABS: Absolute Lymphocytes (CBC) 1.3 K/uL (0.7-4.9); Absolute Monocytes 0.5 K/uL (0.1-1.3); Absolute Neutrophil 3.2 K/uL (1.8-8.0); Basophils % 0.4 % (0-1.3); Eosinophils % 0.7 % (0-4.4); Hematocrit 44.7 % (39.6-49.0); Hemoglobin 14.9 g/dL (13.6-17.9); Lymphocytes % 25.9 % (15.3-44.8); MCH 28.5 pg (27.0-35.0); MCHC 33.4 g/dL (32.0-36.0); MCV 85.3 fL (80-100); MPV 7.3 fL (7.6-11.3); Monocytes % 9.1 % (3.3-12.3); Neutrophils % 63.9 % (41.7-73.7); Platelets 214 thou/uL (152-406); RBC Red Blood Cell Count 5.24 M/uL (4.33-5.43); Red Cell Distribution Width 13.3 % (12.1-15.2)
[2024-01-09] MEDS ORDERED: MORPHINE 4 MG/ML SYR ONE (08:14)
[2024-01-09] MEDS ORDERED: METOCLOPRAMIDE 10 MG/2mL INJ ONE (08:14)
[2024-01-09 08:24] LABS: Albumin 4.5 g/dL (3.4-5.0); Albumin/Globulin Ratio 1.3 (1.1-1.8); Anion Gap 11.8 mEq/L (5.0-15.0); Bilirubin Total 0.8 mg/dL (0.2-1.0); Globulin 3.5 g/dL (2.3-3.5); Potassium 2.8 mEq/L (3.5-5.1)
--- NOTE | 2024-01-09 08:26 | RAD REPORT ---
EXAMINATION: CT ABDOMEN AND PELVIS WITHOUT CONTRAST CLINICAL INDICATION: ABD PAIN TECHNIQUE: CT abdomen and pelvis was performed, without IV contrast, as per department protocol. Axia l, sagittal and coronal reconstructions were obtained. One or more of the following dose reduction techniques were used: Automated exposure control, adjustment of the mA and kV according to the patien t size, and iterative reconstruction. Unless otherwise specified, incidental findings do not require dedicated imaging follow-up. COMPARISON: 11/16/2023 FINDINGS: The lack of intravenous contrast limits the sensitivity of this exam for evaluation of solid visceral organs, vascular structures, and retroperitoneum. LOWER CHEST: The visualized lung bases are clear. LIVER:Normal in size and contour. No focal lesion. Grossly unremarkable gallbladder. SPLEEN: Normal size. No focal lesion. PANCREAS: No mass, ductal dilation, or shola-pancreatic fluid. ADRENALS: Normal; no mass. KIDNEYS AND URETERS: Normal size and contour. No hydronephrosis. URINARY BLADDER: Normal contour. GASTROINTESTINAL TRACT: No evidence of bowel obstruction, significant free fluid, free air or abscess . Moderate retained stool throughout the colon. APPENDIX: Normal appendix. LYMPH NODES: No lymphadenopathy. MUSCULOSKELETAL: No acute or suspicious osseous abnormality. ADDITIONAL FINDINGS: Focal fat-containing supraumbilical midline ventral hernia. On today's study the fat appears inflamed suggesting incarceration. IMPRESSION: Focal fat-containing supraumbilical midline ventral hernia. Since the prior study, this hernia sac de monstrates inflammation of the internal fat suggesting incarceration.
[2024-01-09 09:27] LABS: Specific Gravity 1.016 (1.005-1.030); Urine Bilirubin NEGATIVE (Negative); Urine Blood Negative (Negative); Urine Clarity Clear (Clear); Urine Color Light-Yellow (Yellow); Urine Glucose NEGATIVE (Negative); Urine Ketones 1+ (Negative); Urine Microscopic Reflex YN NO UMIC; Urine Nitrite NEGATIVE (Negative); Urine Protein NEGATIVE (Negative); Urine Urobilinogen Normal (Normal)
--- NOTE | 2024-01-09 09:30 | EDPHYS ---
Physician Documentation [facility] Name: Naseem Sparrow Age: 28 yrs Sex: Male : 1995 Arrival Date: 01/09/2024 Time: 07:23 Bed 8 Private MD: ED Physician Joseph Paris HPI: 01/08 09:22 This 28 yrs old Black Male presents to ER via Ambulatory with complaints of Abdominal johnathan Pain. 09:22 The patient presents with abdominal pain in the periumbilical area. Onset: The johnathan symptoms/episode began/occurred 3 day(s) ago. The symptoms do not radiate. Associated signs and symptoms: Pertinent positives: diarrhea, vomiting. The symptoms are described as constant, crampy. Modifying factors: The symptoms are alleviated by nothing, the symptoms are aggravated by movement, pressure. Severity of pain: At its worst the pain was moderate in the emergency department the pain is unchanged. The patient has experienced similar episodes in the past, several times. Historical: - Allergies: 07:35 IV contrast; hb 07:35 Lisinopril; hb - PMHx: 07:35 coronary atherosclerosis; hb - PSHx: 07:35 Aortic valve replacement; Coronary artery bypass graft; Hypertension; hb - Immunization history:: Adult Immunizations up to date. - Infectious Disease History:: Denies. - Social history:: Smoking status: Patient denies any tobacco usage or history of. - Family history:: not pertinent. ROS: 09:22 Constitutional: Negative for fever, chills, and weight loss, Eyes: Negative for injury, johnathan pain, redness, and discharge, ENT: Negative for injury, pain, and discharge, Neck: Negative for injury, pain, and swelling, Cardiovascular: Negative for chest pain, palpitations, and edema, Respiratory: Negative for shortness of breath, cough, wheezing, and pleuritic chest pain, Back: Negative for injury and pain, : Negative for injury, bleeding, discharge, and swelling, MS/Extremity: Negative for injury and deformity, Skin: Negative for injury, rash, and discoloration, Neuro: Negative for headache, weakness, numbness, tingling, and seizure, Psych: Negative for depression, anxiety, suicide ideation, homicidal ideation, and hallucinations, Allergy/Immunology: Negative for hives, rash, and allergies, Endocrine: Negative for neck swelling, polydipsia, polyuria, polyphagia, and marked weight changes, Hematologic/Lymphatic: Negative for swollen nodes, abnormal bleeding, and unusual bruising, 09:22 Abdomen/GI: Positive for abdominal pain, abdominal cramps, of the umbilical area, Exam: :22 Constitutional: This is a well developed, well nourished patient who is awake, alert, johnathan and in no acute distress. Head/Face: Normocephalic, atraumatic. Eyes: Pupils equal round and reactive to light, extra-ocular motions intact. Lids and lashes normal. Conjunctiva and sclera are non-icteric and not injected. Cornea within normal limits. Periorbital areas with no swelling, redness, or edema. ENT: Nares patent. No nasal discharge, no septal abnormalities noted. Tympanic membranes are normal and external auditory canals are clear. Oropharynx with no redness, swelling, or masses, exudates, or evidence of obstruction, uvula midline. Mucous membranes moist. Neck: Trachea midline, no thyromegaly or masses palpated, and no cervical lymphadenopathy. Supple, full range of motion without nuchal rigidity, or vertebral point tenderness. No Meningismus. Chest/axilla: Normal chest wall appearance and motion. Nontender with no deformity. No lesions are appreciated. Cardiovascular: Regular rate and rhythm with a normal S1 and S2. No gallops, murmurs, or rubs. Normal PMI, no JVD. No pulse deficits. Respiratory: Lungs have equal breath sounds bilaterally, clear to auscultation and percussion. No rales, rhonchi or wheezes noted. No increased work of breathing, no retractions or nasal flaring. Back: No spinal tenderness. No costovertebral tenderness. Full range of motion. Male : Normal genitalia with no discharge or lesions. Skin: Warm, dry with normal turgor. Normal color with no rashes, no lesions, and no evidence of cellulitis. MS/ Extremity: Pulses equal, no cyanosis. Neurovascular intact. Full, normal range of motion. Neuro: Awake and alert, GCS 15, oriented to person, place, time, and situation. Cranial nerves II-XII grossly intact. Motor strength 5/5 in all extremities. Sensory grossly intact. Cerebellar exam normal. Normal gait. Psych: Awake, alert, with orientation to person, place and time. Behavior, mood, and affect are within normal limits. 09:22 Abdomen/GI: Inspection: abdomen appears normal, Bowel sounds: normal, Palpation: moderate abdominal tenderness, in the umbilical area, Liver: no appreciated palpable abnormalities, Hernia: noted in the paraumbilical area, incarceration, that is mild, tenderness, that is moderate, fat reduced, pt now without pain, 09:38 ECG was reviewed by the Attending Physician. [facility] Vital Signs: 07:47 BP 167 / 114; Pulse 68; Resp 16; Temp 97.3(TE); Pulse Ox 100% on R/A; Weight 83.91 kg; hb Height 5 ft. 11 in. ; Pain 5/10; 07:59 BP 170 / 92; Pulse 54; Resp 16 S; Pulse Ox 100% on R/A; Pain 5/10; hb 10:12 BP 165 / 90; Pulse 60; Resp 18 S; Pulse Ox 96% on R/A; Pain 2/10; kc6 07:47 Body Mass Index 25.80 (83.91 kg, 180.34 cm) hb 07:47 Pain Scale: Adult hb 07:59 Pain Scale: Adult hb 10:12 Pain Scale: Adult kc6 MDM: 07:26 Medical Screening Exam initiated johnathan 09:27 Differential diagnosis: bowel obstruction, non-specific abd pain. Data reviewed: vital [facility] signs, nurses notes, lab test result(s), radiologic studies, CT scan. Consideration of Admission/Observation Escalation of care including admission/observation considered. I considered the following discharge prescriptions or medication management in the emergency department Medications were administered in the Emergency Department. See MAR. Independent interpretation of the following test(s) in the Emergency Department CT Scan: My interpretation is fat incarcerated, no bowel. 01/08 07:27 Order name: CBC with Diff; Complete Time: 08:13 [facility] 01/08 07:27 Order name: CMP; Complete Time: 09:06 [facility] 01/08 07:27 Order name: Lipase; Complete Time: 09:06 [facility] 01/08 08:13 Order name: UDS [facility] 01/08 08:14 Order name: Urinalysis w/ reflexes [facility] 01/08 08:14 Order name: Abdomen ; Complete Time: 09:06 EDMS 01/08 08:14 Order name: EKG; Complete Time: 08:14 [facility] 01/08 07:27 Order name: IV Saline Lock; Complete Time: 07:47 [facility] 01/08 07:27 Order name: Labs collected and sent; Complete Time: :47 [facility] 01/08 08:14 Order name: EKG - Nurse/Tech; Complete Time: 08:23 [facility] EC:38 Rate is 75 beats/min. Rhythm is regular. QRS [place] is Normal. [place] interval is normal. QRS johnathan interval is normal. QT interval is prolonged at 506 msec. No Q waves. T waves are Normal. No ST changes noted. Clinical impression: NSR w/ Non-specific ST/T Changes and No evidence of ischemia. Interpreted by me. Reviewed by me. Administered Medications: 07:59 Drug: NS 0.9% IV 1000 ml IV at 1 bolus Per protocol; to be given as a bolus over 60 hb minutes Route: IV; Rate: 1 bolus; Site: right wrist; 08:00 Drug: Famotidine IVP 20 mg IVP once; dilute with 10 mL 0.9% NaCl; give over 2 minutes hb Route: IVP; Site: right wrist; 08:23 Follow up: Response: No adverse reaction; Pain is unchanged, physician notified hb 08:00 Drug: Ondansetron IVP 4 mg IVP once; over 2 minutes Route: IVP; Site: right wrist; 08:23 Follow up: Response: No adverse reaction; Nausea unchanged 08:23 Drug: metoCLOPramide IVP 10 mg IVP once; over 1 to 2 minutes Route: IVP; Site: right hb wrist; 09:15 Follow up: Response: No adverse reaction; Nausea is decreased [facility] 08:23 Drug: morphine IVP or IV 4 mg IVP once over 4 mins Route: IVP; Infused Over: 4 mins; hb Site: right wrist; 09:15 Follow up: Response: No adverse reaction; Pain is decreased; RASS: Restless (+1) kc6 09:47 Drug: Ativan IVP 1 mg IVP once Route: IVP; Site: right wrist; kc6 10:12 Follow up: Response: No adverse reaction; Anxiety decreased; RASS: Alert and Calm (0) kc6 09:47 Drug: Ativan IVP 1 mg IVP once Route: IVP; Site: right wrist; kc6 10:12 Follow up: Response: No adverse reaction; Anxiety decreased; RASS: Alert and Calm (0) kc6 09:47 Drug: Amoxicillin-Clavulanate PO 875 mg PO once Route: PO; kc6 10:12 Follow up: Response: No adverse reaction kc6 Disposition Summary: 01/09/24 09:29 Discharge Ordered Notes: Location: Home johnathan Problem: new johnathan Symptoms: have improved johnathan Condition: Stable johnathan Diagnosis - Ventral hernia without obstruction or gangrene - fat containing, reduced, no bowel johnathan incareration - Abdominal tenderness johnathan - Cannabis abuse johnathan - Cannabis abuse with cannabis-induced anxiety disorder johnathan Followup: johnathan - With: Private Physician - When: 2 - 3 days - Reason: Recheck today's complaints, Continuance of care, Re-evaluation by your physician Followup: johnathan - With: Jeremiah Lei MD - When: 2 - 3 days - Reason: Recheck today's complaints, Re-evaluation by your physician Discharge Instructions: - Discharge Summary Sheet johnathan - Abdominal Pain, Adult johnathan - Hernia, Adult johnathan - Cannabis Use Disorder johnathan - Substance Use Disorder johnathan - Supporting Someone With an Addiction johnathan - Abdominal Pain, Adult, [id number] johnathan - Hernia, Adult, [id number] johnathan - Ventral Hernia johnathan - Substance Use Disorder and Mental Illness johnathan - Illegal Drug Use Information, Adult [facility] Forms: - Medication Reconciliation Form johnathan - Antibiotic Education johnathan - Prescription Opioid Use johnathan - Patient Portal Instructions [facility] - Leadership Thank You Letter [facility] - Work release form Prescriptions: - Augmentin 875-125 mg Oral tablet - take 1 tablet ORAL route every 12 hours for 10 days; 20 tablet; Refills: 0, johnathan Product Selection Permitted Signatures: Dispatcher [employer] EDJoseph Sheth MD MD [facility] Sury Ordonez RN RN Yamila Alvarez RN RN kc6 Corrections: (The following items were deleted from the chart) 07:27 07:27 CBC+H.LAB.BRZ ordered. EDMS EDMS 07:27 07:27 COMPREHENSIVE METABOLIC PANEL+C.LAB.BRZ ordered. EDMS EDMS 07:27 07:27 LIPASE+C.LAB.BRZ ordered. EDMS EDMS 07:27 07:27 Abdomen Pelvis W Con+CT.RAD.BRZ ordered. EDMS EDMS 08:14 08:14 Urinalysis+U.LAB.BRZ ordered. EDMS EDMS 08:32 08:14 Abdomen Pelvis Wo Con+CT.RAD.BRZ ordered. EDMS EDMS
--- NOTE | 2024-01-09 09:30 | ER ---
Nurse's Notes [facility] Name: Naseem Sparrow Age: 28 yrs Sex: Male : 1995 Arrival Date: 01/09/2024 Time: 07:23 Bed 8 Private MD: Diagnosis: Ventral hernia without obstruction or gangrene-fat containing, reduced, no bowel incareration;Abdominal tenderness;Cannabis abuse;Cannabis abuse with cannabis-induced anxiety disorder Presentation: 01/08 07:34 Chief complaint: Upper abdominal pain and N/V x 1 week. Coronavirus screen: At this hb time, the client does not indicate any symptoms associated with coronavirus-19. Ebola Screen: No symptoms or risks identified at this time. Risk Assessment: Do you want to hurt yourself or someone else? Patient reports no desire to harm self or others. Onset of symptoms was January 02, 2024. 07:34 Method Of Arrival: Ambulatory hb 07:34 Acuity: VITOR 3 hb 07:47 Initial Sepsis Screen: Does the patient meet any 2 criteria? No. Patient's initial hb sepsis screen is negative. Does the patient have a suspected source of infection? No. Patient's initial sepsis screen is negative. Triage Assessment: 07:47 General: Appears in no apparent distress. uncomfortable, Behavior is calm, cooperative. hb Pain: Pain currently is 5 out of 10 on a pain scale. EENT: No signs and/or symptoms were reported regarding the EENT system. Neuro: Level of Consciousness is awake, alert, obeys commands, Oriented to person, place, time, situation. Cardiovascular: Patient's skin is warm and dry. Respiratory: Respiratory effort is even, unlabored, Respiratory pattern is regular, symmetrical. GI: Reports upper abdominal pain, nausea, vomiting. : No signs and/or symptoms were reported regarding the genitourinary system. Derm: Skin is pink, warm \T\ dry. Musculoskeletal: No signs and/or symptoms reported regarding the musculoskeletal system. Historical: - Allergies: 07:35 IV contrast; hb 07:35 Lisinopril; hb - PMHx: 07:35 coronary atherosclerosis; hb - PSHx: 07:35 Aortic valve replacement; Coronary artery bypass graft; Hypertension; hb - Immunization history:: Adult Immunizations up to date. - Infectious Disease History:: Denies. - Social history:: Smoking status: Patient denies any tobacco usage or history of. - Family history:: not pertinent. Screenin:48 [facility] ED Fall Risk Assessment (Adult) History of falling in the last 3 months, hb including since admission No falls in past 3 months (0 pts) Confusion or Disorientation No (0 pts) Intoxicated or Sedated No (0 pts) Impaired Gait No (0 pts) Mobility Assist Device Used No (0 pt) Altered Elimination No (0 pt) Score/Fall Risk Level 0 - 2 = Low Risk Oriented to surroundings, Maintained a safe environment, Educated pt \T\ family on fall prevention, incl call for assistance when getting out of bed. Abuse screen: Denies threats or abuse. Denies injuries from another. Nutritional screening: No deficits noted. Tuberculosis screening: No symptoms or risk factors identified. Assessment: 07:48 General: See triage assessment . hb 08:00 General: Appears in no apparent distress. uncomfortable, well groomed, well developed, hb Behavior is cooperative, appropriate for age, restless. Pain: Complains of pain in abdomen Pain currently is 5 out of 10 on a pain scale. Neuro: Level of Consciousness is awake, alert, obeys commands, Oriented to person, place, time, situation, Appropriate for age. Cardiovascular: Capillary refill < 3 seconds. Respiratory: Airway is patent Trachea midline Respiratory effort is even, unlabored, Respiratory pattern is regular, symmetrical. GI: Abdomen is flat, non-distended, Bowel sounds present X 4 quads. Abd is soft X 4 quads Reports lower abdominal pain, upper abdominal pain, diarrhea, nausea, vomiting. : No signs and/or symptoms were reported regarding the genitourinary system. EENT: No signs and/or symptoms were reported regarding the EENT system. Derm: No signs and/or symptoms reported regarding the dermatologic system. Skin is intact, is healthy with good turgor, Skin is pink, warm \T\ dry. Musculoskeletal: No signs and/or symptoms reported regarding the musculoskeletal system. Circulation, motion, and sensation intact. Capillary refill < 3 seconds, Range of motion: intact in all extremities. 09:00 Reassessment: Patient appears in no apparent distress at this time. No changes from kc6 previously documented assessment. Patient and/or family updated on plan of care and expected duration. Pain level reassessed. Patient is alert, oriented x 3, equal unlabored respirations, skin warm/dry/pink. 10:12 Reassessment: Patient appears in no apparent distress at this time. No changes from kc6 previously documented assessment. Patient and/or family updated on plan of care and expected duration. Pain level reassessed. Patient is alert, oriented x 3, equal unlabored respirations, skin warm/dry/pink. Vital Signs: 07:47 BP 167 / 114; Pulse 68; Resp 16; Temp 97.3(TE); Pulse Ox 100% on R/A; Weight 83.91 kg; hb Height 5 ft. 11 in. ; Pain 5/10; 07:59 BP 170 / 92; Pulse 54; Resp 16 S; Pulse Ox 100% on R/A; Pain 5/10; hb 10:12 BP 165 / 90; Pulse 60; Resp 18 S; Pulse Ox 96% on R/A; Pain 2/10; kc6 07:47 Body Mass Index 25.80 (83.91 kg, 180.34 cm) hb 07:47 Pain Scale: Adult hb 07:59 Pain Scale: Adult hb 10:12 Pain Scale: Adult kc6 ED Course: 07:25 Patient arrived in ED. im 07:26 Joseph Paris MD is Attending Physician. johnathan 07:31 Yamila Alvarez, RN is Primary Nurse. kc6 07:35 Triage completed. hb 07:35 Arm band placed on. hb 07:47 CBC with Diff Sent. em1 07:47 CMP Sent. em1 07:47 Lipase Sent. em1 07:47 Initial lab(s) drawn, by in, sent to lab. Inserted saline lock: 22 gauge in right em1 wrist, using aseptic technique. Blood collected. Flushed with 10 mL NS Missed attempt(s): 20 gauge in right antecubital area. Bleeding controlled, band aid applied, catheter tip intact. 07:48 Patient has correct armband on for positive identification. Provided Education on: use hb of call light . 08:14 Abdomen In Process Unspecified. EDMS 08:31 EKG done, by career technical supervisor. reviewed by Joseph Paris MD. nh2 09:28 Jeremiah Lei MD is Referral Physician. johnathan 10:13 No provider procedures requiring assistance completed. IV discontinued, intact, kc6 bleeding controlled, No redness/swelling at site. Pressure dressing applied. Administered Medications: 07:59 Drug: NS 0.9% IV 1000 ml IV at 1 bolus Per protocol; to be given as a bolus over 60 hb minutes Route: IV; Rate: 1 bolus; Site: right wrist; 08:00 Drug: Famotidine IVP 20 mg IVP once; dilute with 10 mL 0.9% NaCl; give over 2 minutes hb Route: IVP; Site: right wrist; 08:23 Follow up: Response: No adverse reaction; Pain is unchanged, physician notified hb 08:00 Drug: Ondansetron IVP 4 mg IVP once; over 2 minutes Route: IVP; Site: right wrist; hb 08:23 Follow up: Response: No adverse reaction; Nausea unchanged hb 08:23 Drug: metoCLOPramide IVP 10 mg IVP once; over 1 to 2 minutes Route: IVP; Site: right hb wrist; 09:15 Follow up: Response: No adverse reaction; Nausea is decreased 6 08:23 Drug: morphine IVP or IV 4 mg IVP once over 4 mins Route: IVP; Infused Over: 4 mins; hb Site: right wrist; 09:15 Follow up: Response: No adverse reaction; Pain is decreased; RASS: Restless (+1) [facility] 09:47 Drug: Ativan IVP 1 mg IVP once Route: IVP; Site: right wrist; 6 10:12 Follow up: Response: No adverse reaction; Anxiety decreased; RASS: Alert and Calm (0) 6 09:47 Drug: Ativan IVP 1 mg IVP once Route: IVP; Site: right wrist; kc6 10:12 Follow up: Response: No adverse reaction; Anxiety decreased; RASS: Alert and Calm (0) 6 09:47 Drug: Amoxicillin-Clavulanate PO 875 mg PO once Route: PO; kc6 10:12 Follow up: Response: No adverse reaction [facility] Medication: 07:49 VIS not applicable for this client. Outcome: 09:29 Discharge ordered by . johnathan 10:13 Discharged to home via wheelchair, with significant other, kc6 10:13 Condition: good 10:13 Discharge instructions given to patient, significant other, Instructed on discharge instructions, follow up and referral plans. no drinking with medication, no driving heavy equipment, medication usage, Demonstrated understanding of instructions, follow-up care, medications, Prescriptions given X 1, 10:14 Patient left the ED. kc6 Signatures: Dispatcher [employer] EDJoseph Sheth MD MD cha Martinez, Eric em1 Sury Ordonez RN RN hb Campbell, Kaitlyn, RN RN kc6 Jena Raphael , [place] [id number]
[2024-01-09] MEDS ORDERED: AMOX/K CLAV 875 MG TAB ONE (09:42)
[2024-01-09] MEDS ORDERED: LORazepam 2 MG/ML VIAL ONE (09:42)
[2024-01-09 09:50] LABS: Barbiturates NEGATIVE (NEGATIVE); Benzodiazepines NEGATIVE (NEGATIVE); Cocaine NEGATIVE (NEGATIVE); METHAMPHETAM NEGATIVE (NEGATIVE); Methadone NEGATIVE (NEGATIVE); Opiates POSITIVE (NEGATIVE); Phencyclidine NEGATIVE (NEGATIVE); THC Cannibis POSITIVE (NEGATIVE)
[2024-01-09 10:36] VITALS: TEMP 97.3
[2024-01-09 10:39] VITALS: BP 165/90; O2SAT 96
--- NOTE | 2024-01-13 13:06 | EKG ---
Test Date: 2024-01-09 Test Time: 08:27:28 Parts Manager: YADIRA MEASUREMENT RESULTS: Intervals: Rate: 75 MS: 132 QRSD: 108 QT: 454 QTc: 506 Crosby: P: 65 MS: 132 QRS: 93 T: 32 INTERPRETIVE STATEMENTS: Normal sinus rhythm Rightward axis Moderate voltage criteria for LVH, may be normal variant Nonspecific ST abnormality Prolonged QT Abnormal ECG Compared to ECG 11/16/2023 10:01:05 Right-axis deviation now present Left ventricular hypertrophy now present ST (T wave) deviation now present Prolonged QT interval now present Sinus tachycardia no longer present Left bundle-branch block no longer present Electronically Signed On 01-13-24 12:54:39 CDT by Bk De Leon
== END 2024-01-09 10:14 | disposition home or self-care (01) ==
LOC: ER 07:23
DX: K43.9 Ventral hernia without obstruction or gangrene (principal); F12.180 Cannabis abuse with cannabis-induced anxiety disorder; I10 Essential (primary) hypertension; Z95.1 Presence of aortocoronary bypass graft
CPT/HCPCS: 93005; 85025; 36415; 81003; 83690; 80053; 80307; 74176; 96375; 96374; 99284; J2765; J2405; J7030

== ENCOUNTER 2024-01-28 06:27 | Day surgery (SDC) | payer BC, OTHER ==
[2024-01-27 15:25] LABS: Anion Gap 6.7 mEq/L (5.0-15.0); Potassium 3.7 mEq/L (3.5-5.1)
[2024-01-28] MEDS: Ringers Lactate 1,000 ML IV ONE (06:55)
[2024-01-28 07:07] VITALS: O2SAT 100
[2024-01-28] MEDS ORDERED: ONDANSETRON 4 MG/2 ML VIAL ONE (07:13)
[2024-01-28] MEDS ORDERED: ROCURONIUM 50 MG/5 ML VIAL IV ONE (07:13)
[2024-01-28] MEDS ORDERED: propofoL 200 MG/20 ML VIAL IV ONE (07:13)
[2024-01-28] MEDS ORDERED: GLYCOPYRROLATE 0.2 MG/ML SYR ONE ×3 (07:13→08:46)
[2024-01-28] MEDS ORDERED: LIDOCAINE 1% MPF 5 ML VIAL ONE (07:13)
[2024-01-28] MEDS ORDERED: FENTANYL CITR 100 MCG/2 ML ONE (07:13)
[2024-01-28] MEDS ORDERED: MIDAZOLAM HCL 2 MG/2 ML INJ ONE (07:13)
[2024-01-28] MEDS ORDERED: KETOROLAC 30 MG/ML INJ ONE (07:13)
[2024-01-28] MEDS ORDERED: NA CHLORIDE 0.9% 3,000 ML ONE (07:44)
[2024-01-28] MEDS: CEFAZOLIN SODIUM 1 GM/VIAL ONE (07:50)
[2024-01-28] MEDS ORDERED: NEOSTIGMINE 1 MG/ML -10 ML VIAL ONE (08:32)
--- NOTE | 2024-01-28 08:48 | P.BOP ---
Preoperative diagnosis: tender incarcerated incisional upper ventral hernia Postoperative diagnosis: same plus intrabdominal adhesions Primary procedure: 1Laparoscopic repair incarcerated incisional upper ventral hernia with mesh Secondary procedure: 2. Laparoscopic lysis of adhesions Estimated blood loss: <10cc Specimen: none Findings: incercerated omemtum and falciform ligament Anesthesia: General Complications: None Transferred to: Recovery Room Condition: Good
[2024-01-28] MEDS: HYDROCODONE/APAP 10/325 TAB ONE (10:02)
[2024-01-28 10:18] VITALS: BP 174/97; TEMP 97.2
--- NOTE | 2024-02-02 13:31 | OP ---
Date of Procedure: 01/29/2024 Surgeon: Jeremiah Lei MD Preoperative Diagnosis: Tender incarcerated incisional open ventral hernia. Postoperative Diagnosis: Tender incarcerated incisional open ventral hernia plus intraabdominal adhe sions. Procedures: Laparoscopic repair of incarcerated tender incisional open ventral hernia with mesh and laparoscopic lysis of adhesions. Estimated Blood Loss: Less than 10 cc. Specimen: None. Findings: Incarcerated omentum and falciform ligament on his incisional open ventral hernia. The pa tient has multiple adhesions in that region that have to be removed. We spent about half the time ju st doing adhesions in this case. Anesthesia: General plus local. Indications For Procedure: This is a case of a male, who comes to us with multiple medical problems including multiple cardiac surgeries. He also has few incisions in the upper abdomen. He claims it maybe related to the chest tube, is not completely sure. He has a bulge in that area giving pain and discomfort and diagnosed with incarcerated ventral hernia, and he wants that repaired. The benefits , alternatives, and risks of repair of an incarcerated incisional open ventral hernia with possible m esh fully discussed with the patient, which include, but not limited to infection, bleeding, damage t o adjacent structures, anesthesia complication, recurrence, [place], and . He also understands this may not relieve any symptoms. He might need more than one surgical intervention. We discussed with him pros and cons of mesh placement, pros and cons were discussed with the patient. All the question s were answered to his satisfaction. He signed a consent Description Of Procedure: Patient was brought to the operating room, placed in supine position. Ane sthesia was without complication. Abdominal area was prepped and draped in the usual sterile fashion . Local anesthesia was applied followed by sharp incision of the skin in the periumbilical region. Incision was carried down to fascia, which was opened under direct vision. Peritoneum was encountere d, opened under direct vision. Vicryl #1 placed inside the fascia. Brenda trocar was carefully intr oduced. Pneumoperitoneum was obtained. I placed the camera in. We noticed immediately the hernia p resent with omentum coming through it. Also, part of the falciform ligament coming through that caryl ia defects. I placed two more trocars, 5 mm each one of them, in the right and left side of the abdo men and with the help of LigaSure, we proceeded to do some adhesions holding this omentum from being able to be reduced. We spent half of the time just doing lysis of adhesions in that upper abdomen. We also have to mobilize the falciform ligament to allow the repair to be nice and flat with the use of the mesh so it can be laid flat against the abdominal wall. Once we understand the fascia defect, so we proceeded then to make an incision over the previous incision and this allowed me to clean the fascial edges a little bit. Unfortunately, we have to use more than just stitches to close that are a. We have to put a mesh intraperitoneally. So once we have the fascial edges clean, I proceeded to place multiple Prolene's in a [id number] fashion to approximate the defect. Before we tied all of them, we placed a Ventralex mesh to that region, pulled the straps of that mesh. I closed all th e Prolene except few to allow pneumoperitoneum to be obtained once again. We put the cameras once ag ain and intraperitoneally, we fixated the mesh to the anterior abdominal wall using SorbaFix fixation device. At one point, we were able to remove the straps and tie all the stitches on the ventral reg ion having an AirSeal and further approximate and fixate the mesh to the anterior abdominal wall by c ircumferential placement of the SorbaFix to make sure there was no bowel in between. Once we have th at, we proceeded then to inspect the area of the lysis of adhesions, inspect the falciform ligaments, and no bleeding. Then, deflated pneumoperitoneum, removed the trocars under direct visualization, a nd then closed the rest of the fascia and also closed the supraumbilical fascia with #1 Vicryl. Irri gated the subcutaneous tissue, closed that with 3-0 chromic and then, the skin was approximated. Spo nge count and instrument counts were correct. Patient tolerated the procedure well. Patient was sen t to recovery in stable condition Condition: Stable. Disposition: Home. Activity: As tolerated. No heavy lifting. Follow up in my office in 1 week. Call for appointment at [phone]. Keep area dry for 48 hours, then may shower. MATI/LAURA Voice ID: [id number] Report ID: [id number]
== END 2024-01-28 10:30 | disposition home or self-care (01) ==
LOC: OR 06:27
PROVIDERS: ATTEND Surgery
PROC: 0DNU4ZZ Release Omentum, Percutaneous Endoscopic Approach (ICD-10-PCS; 2024-01-28)
PROC: 0WUF4JZ Supplement Abdominal Wall with Synthetic Substitute, Percutaneous Endoscopic Approach (ICD-10-PCS; principal; 2024-01-28 07:30)
DX: K43.0 Incisional hernia with obstruction, without gangrene (principal); K66.0 Peritoneal adhesions (postprocedural) (postinfection)
CPT/HCPCS: 49594; 80048; 36415; 49329; J2704; J2710; J2003; J2250; J3010; J2405; J7120; J7030; J0690